=== PATIENT | female | born 1935 | race Caucasian/White ===

== ENCOUNTER 2016-10-23 13:32 | Outpatient (CLI) | payer MEDICARE, OTHER ==
[~2016-10-23] VITALS: Ht 160 cm; Wt 54.9 kg
[2016-10-23 13:44] VITALS: BP 158/88
[2016-10-23] MEDS ORDERED: ESTR1TAB24 PO (13:47)
[2016-10-23] MEDS ORDERED: LOSA50TA36 PO (13:47)
[2016-10-23] MEDS ORDERED: ASPI-586 PO (13:47)
[2016-10-23 14:18] LABS: BASOPHILS % (AUTO) 0 % (0-10); EOSINOPHILS # (AUTO) 0.1 10^3/uL (0.0-0.3); EOSINOPHILS % (AUTO) 2 % (0-10); LYMPHOCYTES # (AUTO) 2.1 X 10^3 (1.0-4.0); LYMPHOCYTES % (AUTO) 44 % (12-44); MEAN CORPUSCULAR HEMOGLOBIN 29 PG (25-34); MEAN CORPUSCULAR HGB CONC 32 G/DL (32-36); MEAN CORPUSCULAR VOLUME 90 FL (80-99); MEAN PLATELET VOLUME 11.1 FL (7.4-10.4); MONOCYTES # (AUTO) 0.6 X 10^3 (0.0-1.0); MONOCYTES % (AUTO) 13 % (0-12); NEUTROPHILS % (AUTO) 41 % (42-75); PLATELET COUNT 203 10^3/uL (130-400); RED BLOOD COUNT 4.03 10^6/uL (4.35-5.85); RED CELL DISTRIBUTION WIDTH 13.4 % (10.0-14.5); WHITE BLOOD COUNT 4.9 10^3/uL (4.3-11.0)
[2016-10-23 14:45] LABS: ANION GAP 9 MMOL/L (5-14); BLOOD UREA NITROGEN 17 MG/DL (7-18); BUN/CREATININE RATIO 21; CARBON DIOXIDE 23 MMOL/L (21-32); CHLORIDE 107 MMOL/L (98-107); GFR ESTIMATED > 60; GLUCOSE 156 MG/DL (70-105); POTASSIUM 4.1 MMOL/L (3.6-5.0); SODIUM 139 MMOL/L (135-145)
== END 2016-10-23 14:05 | disposition home or self-care (01) ==
LOC: PREOP 13:32
PROVIDERS: ATTEND Otolaryngology Otolaryngology/Facial Plastic Surgery
DX: Z01.810 Encounter for preprocedural cardiovascular examination (principal); Z01.812 Encounter for preprocedural laboratory examination; Z11.2 Encounter for screening for other bacterial diseases; C44.311 Basal cell carcinoma of skin of nose
CPT/HCPCS: 36415; 80048; 85025; 87081; 93005

== ENCOUNTER 2016-10-27 07:20 | Day surgery (SDC) | payer MEDICARE, OTHER ==
[~2016-10-27] VITALS: Ht 160 cm; Wt 54.9 kg
[~2016-10-27 07:20] MED LIST: ASPI-586 PO; ESTR1TAB24 PO; LOSA50TA36 PO
[2016-10-27 07:43] VITALS: BP 145/86
[2016-10-27] MEDS ORDERED: LACTATED RINGERS 1,000 ML IV PRN (08:23)
[2016-10-27] MEDS ORDERED: MUPIROCIN 2% OINT 22 GM (BACTROBAN) TUBE ONE (08:33)
[2016-10-27] MEDS ORDERED: LIDOCAINE/EPI 1%-1:200,000 (XYLOCAINE) 30 ML VIAL ONE (08:33)
[2016-10-27] MEDS ORDERED: fentaNYL INJECTION 100 MCG/2 ML AMP ONE (08:54)
[2016-10-27] MEDS ORDERED: proPOfol 200 MG/20 ML (DIPRIVAN) VIAL IV ONE (08:55)
[2016-10-27] MEDS ORDERED: DEXAMETHASONE PF 10 MG/ML (DECADRON) VIAL ONE (08:55)
[2016-10-27] MEDS ORDERED: ONDANSETRON 4 MG/2 ML (SDV) Z0FRAN ONE (08:55)
[2016-10-27] MEDS ORDERED: LACTATED RINGERS 1,000 ML IV ONE (08:55)
[2016-10-27] MEDS ORDERED: LIDOCAINE PF 2% 5 ML (XYLOCAINE) VIAL ONE (08:55)
[2016-10-27] MEDS ORDERED: SEVOFLURANE (ULTANE) 15 ML INHAL SOLN ONE ×5 (08:55→10:10)
--- NOTE | 2016-10-27 09:05 | Progress Note-Pre Operative ---
Pre-Operative Progress Note H&P Reviewed The H&P was reviewed, patient examined and no changes noted. 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
--- NOTE | 2016-10-27 10:18 | Progress Note-Post Operative ---
Post-Operative Progess Note Surgeon (s)/Block Tester (s) Surgeon FRED GLASS MD Block Tester n/a Pre-Operative Diagnosis skin cancer tip of nose Post-Operative Diagnosis same Post-Op Procedure Note Date of Procedure: Oct 27, 2016 Name of Procedure Performed: Excision of BAsal Cell of Nasal Tip Description & Findings Description and Findings: n/a Anesthesia Type lma Estimated Blood Loss minimal Packing none. Specimen(s) collected/removed nasal tip lesion final margins clear FRED GLASS MD Oct 27, 2016 10:18 am
[2016-10-27] MEDS ORDERED: HYDROcodone/APAP 5 MG/325 MG (LORTAB) TAB PO PRN (10:30)
[2016-10-27] MEDS ORDERED: ACETAMINOPHEN 325 MG TABLET/CAPLET (TYLENOL) PO PRN (10:30)
[2016-10-27 11:15] VITALS: BP 155/84
[2016-10-27] MEDS ORDERED: HYDR-3812 PO (11:39)
[2016-10-27 11:45] VITALS: BP 150/88
[2016-10-27 12:10] VITALS: BP 150/88
== END 2016-10-27 13:20 | disposition home or self-care (01) ==
LOC: SDC 07:20
PROVIDERS: ATTEND Otolaryngology Otolaryngology/Facial Plastic Surgery
DX: C44.311 Basal cell carcinoma of skin of nose (principal); I10 Essential (primary) hypertension; Z79.899 Other long term (current) drug therapy
CPT/HCPCS: 88305; 88331

== ENCOUNTER → 2017-03-23 | Outpatient (CLI) | payer MEDICARE, OTHER ==
[~2017-03-23] MED LIST changes: +HYDR-3812 PO
--- NOTE | 2017-03-26 09:30 | Diagnostic Imaging Report ---
Bilateral screening mammogram 2D views with tomosynthesis The current study was also evaluated with a Computer Aided Detection (CAD) system. Indication: Screening. No current complaints stated on the questionnaire. COMPARISON: 03/21/2016. Findings: The breasts are composed of scattered fibroglandular densities. There is no mass, stricture distortion or suspicious for some opacification. Allowing for technique and positional differences, no suspicious change is seen. IMPRESSION: No significant change. ACR BI-RADS Category 2: Benign findings. Result letter will be mailed to the patient. Note: At least 10% of breast cancer is not imaged by mammography. Dictated by: Dictated on workstation # [id number]
== END ==
LOC: RAD 11:55
PROVIDERS: ATTEND Obstetrics & Gynecology
DX: Z12.31 Encounter for screening mammogram for malignant neoplasm of breast (principal)
CPT/HCPCS: 77067

== ENCOUNTER 2017-07-18 07:49 | Emergency (ER) | payer MEDICARE, OTHER ==
[~2017-07-18] VITALS: Ht 160 cm; Wt 55.8 kg
[~2017-07-18 07:49] MED LIST changes: +ACHD5005 PO; -HYDR-3812 PO
[2017-07-18] MEDS ORDERED: SIMV20TA3 PO (08:25)
[2017-07-18 08:26] LABS: BASOPHILS % (AUTO) 0 % (0-10); EOSINOPHILS % (AUTO) 0 % (0-10); HEMATOCRIT 35 % (35-52); HEMOGLOBIN 11.5 G/DL (11.5-16.0); LYMPHOCYTES % (AUTO) 14 % (12-44); MEAN CORPUSCULAR HEMOGLOBIN 29 PG (25-34); MEAN CORPUSCULAR HGB CONC 33 G/DL (32-36); MEAN CORPUSCULAR VOLUME 89 FL (80-99); MEAN PLATELET VOLUME 11.2 FL (7.4-10.4); MONOCYTES # (AUTO) 1.2 X 10^3 (0.0-1.0); MONOCYTES % (AUTO) 16 % (0-12); NEUTROPHILS # (AUTO) 4.9 X 10^3 (1.8-7.8); NEUTROPHILS % (AUTO) 69 % (42-75); PLATELET COUNT 205 10^3/uL (130-400); RED BLOOD COUNT 3.92 10^6/uL (4.35-5.85); RED CELL DISTRIBUTION WIDTH 13.7 % (10.0-14.5); WHITE BLOOD COUNT 7.1 10^3/uL (4.3-11.0)
--- NOTE | 2017-07-18 08:29 | ED Fall/Injury ---
General Chief Complaint: Trauma-Non Activation Stated Complaint: FALL X 1 DAY--LEFT SIDE PAIN Nursing Triage Note: FALL AT HOME YESTERDAY PT STATES HIT HEAD NO LOC. HAS L SIDE PAIN AND BRUISING, RATES PAIN 10/10. C-COLLAR PLACE ON PT IN TRIAGE STATES HAS NECK PAIN Source: patient Exam Limitations: no limitations History of Present Illness Date Seen by Provider: Jul 18, 2017 Time Seen by Provider: 08:04 Initial Comments This 82-year-old woman ambulates into the emergency room with complaints of pain and bruising related to a fall yesterday. She was walking down the basement stairs and missed the last step. She was carrying a high chair at the time. She fell striking her left side and her head. She denies loss of consciousness. She had some nausea in the night but otherwise denies any signs or symptoms of concussion. She complains of neck pain, pain in the left flank and mid back, left shoulder pain, and left lower extremity pain. She has extensive bruising and shallow abrasions of the left lower extremity. She has nonpainful bruising, skin tears and abrasions to the right wrist and hand. She has pain in the left mid back (chest wall) with inspiration. She takes a baby aspirin daily. She denies any other acute medical problems. She is alert and oriented. C-collar was applied during assessment. Location Injury Occurred: HOME Allergies and Home Medications Allergies Coded Allergies: Sulfa (Sulfonamide Antibiotics) (Verified Allergy, Unknown, 10/27/16) morphine (Verified Allergy, Unknown, 10/27/16) Home Medications Aspirin 81 Mg Tablet.dr, 81 MG PO DAILY, (Reported) Estradiol 1 Mg Tablet, 1 MG PO DAILY, (Reported) Losartan Potassium 50 Mg Tablet, 50 MG PO DAILY, (Reported) Patient Home Medication List Home Medication List Reviewed: Yes Review of Systems Constitutional: no symptoms reported Eyes: No Symptoms Reported Ears, Nose, Mouth, Throat: no symptoms reported Respiratory: no symptoms reported Cardiovascular: no symptoms reported Gastrointestinal: see HPI Genitourinary: no symptoms reported : No Musculoskeletal: see HPI Skin: see HPI Psychiatric/Neurological: See HPI Past Rmxjqgy-Pyjqod-Oojfdi Hx Patient Social History Alcohol Use: Denies Use Recreational Drug Use: No Smoking Status: Never a Smoker Recent Foreign Travel: No Contact w/Someone Who Travel: No Recent Infectious Disease Expo: No Recent Hopitalizations: No Physical Abuse: No Sexual Abuse: No Immunizations Up To Date Date of Pneumonia Vaccine: Dec 31, 2012 Seasonal Allergies Seasonal Allergies: Yes (occasional) Past Medical History Surgeries: Yes Appendectomy, Hysterectomy Respiratory: No Cardiac: Yes High Cholesterol, Hypertension Neurological: No Reproductive Disorders: No WEIGHER PACKING History: Hysterectomy Sexually Transmitted Disease: No HIV/AIDS: No Gastrointestinal: No Musculoskeletal: Yes Arthritis Endocrine: No HEENT: No Cancer: Yes Skin Psychosocial: No Nursing Suicide Risk Score: 0 Integumentary: No Blood Disorders: No Adverse Reaction/Blood Tranf: No Physical Exam Vital Signs Vital Signs - First Documented 07/18/17 08:00 Temp 98.2 Pulse 51 Resp 18 B/P (MAP) 140/50 (80) Pulse Ox 99 Capillary Refill : Less Than 3 Seconds General Appearance: WD/WN, no apparent distress HEENT: PERRL/EOMI, normal ENT inspection, pharynx normal Neck: tender midline, other (c-collar in place) Cardiovascular: regular rate, rhythm, no edema, no murmur Respiratory: lungs clear, normal breath sounds, no respiratory distress, no accessory muscle use Gastrointestinal: normal bowel sounds, non tender, soft, no organomegaly Extremities: other (extensive bruising and abrasions on the left thigh and left lower extremity. Tenderness over the left shoulder. Skin tears and bruising on the right hand and right wrist without tenderness. Abrasions on the right wrist.) Neurologic/Psychiatric: type proof reproducer II-XII nml as tested, no motor/sensory deficits, alert, normal mood/affect, oriented x 3 Skin: warm/dry, ecchymosis [place] Coma Score Best Eye Response: (4) Open Spontaneously Best Verbal Response: (5) Oriented Best Motor Response: (6) Obeys Commands [place] Total: 15 Progress/Results/Core Measures Lab Results Laboratory Tests Test 07/18/17 08:20 07/18/17 09:49 Range/Units White Blood Count 7.1 4.3-11.0 10^3/uL Red Blood Count 3.92 L 4.35-5.85 10^6/uL Hemoglobin 11.5 11.5-16.0 G/DL Hematocrit 35 35-52 % Mean Corpuscular Volume 89 80-99 FL Mean Corpuscular Hemoglobin 29 25-34 PG Mean Corpuscular Hemoglobin Concent 33 32-36 G/DL Red Cell Distribution Width 13.7 10.0-14.5 % Platelet Count 205 130-400 10^3/uL Mean Platelet Volume 11.2 H 7.4-10.4 FL Neutrophils (%) (Auto) 69 42-75 % Lymphocytes (%) (Auto) 14 12-44 % Monocytes (%) (Auto) 16 H 0-12 % Eosinophils (%) (Auto) 0 0-10 % Basophils (%) (Auto) 0 0-10 % Neutrophils # (Auto) 4.9 1.8-7.8 X 10^3 Lymphocytes # (Auto) 1.0 1.0-4.0 X 10^3 Monocytes # (Auto) 1.2 H 0.0-1.0 X 10^3 Eosinophils # (Auto) 0.0 0.0-0.3 10^3/uL Basophils # (Auto) 0.0 0.0-0.1 10^3/uL Prothrombin Time 14.5 12.2-14.7 SEC INR Comment 1.1 0.8-1.4 Activated Partial Thromboplast Time 28 24-35 SEC Sodium Level 140 135-145 MMOL/L Potassium Level 4.1 3.6-5.0 MMOL/L Chloride Level 107 98-107 MMOL/L Carbon Dioxide Level 23 21-32 MMOL/L Anion Gap 10 5-14 MMOL/L Blood Urea Nitrogen 24 H 7-18 MG/DL Creatinine 1.09 0.60-1.30 MG/DL Estimat Glomerular Filtration Rate 48 BUN/Creatinine Ratio 22 Glucose Level 133 H 70-105 MG/DL Calcium Level 9.9 8.5-10.1 MG/DL Total Bilirubin 0.9 0.1-1.0 MG/DL Aspartate Amino Transf (AST/SGOT) 20 5-34 U/L Alanine Aminotransferase (ALT/SGPT) 17 0-55 U/L Alkaline Phosphatase 70 40-136 U/L Total Creatine Kinase 175 H 29-168 U/L Total Protein 7.2 6.4-8.2 GM/DL Albumin 4.5 3.2-4.5 GM/DL Urine Color YELLOW Urine Clarity CLEAR Urine pH 5 5-9 Urine Specific [place] 1.025 H 1.016-1.022 Urine Protein 2+ H NEGATIVE Urine Glucose (UA) NEGATIVE NEGATIVE Urine Ketones 1+ H NEGATIVE Urine Nitrite NEGATIVE NEGATIVE Urine Bilirubin NEGATIVE NEGATIVE Urine Urobilinogen NORMAL NORMAL MG/DL Urine Leukocyte Esterase 1+ H NEGATIVE Urine RBC (Auto) NEGATIVE NEGATIVE Urine RBC NONE /HPF Urine WBC 2-5 /HPF Urine Squamous Epithelial Cells 10-25 H /HPF Urine Crystals NONE /LPF Urine Bacteria NEGATIVE /HPF Urine Casts NONE /LPF Urine Mucus MODERATE H /LPF Urine Culture Indicated NO My Orders Orders - GABRIELLA MARTINEZ MD Cbc With Automated Diff (07/18/17 08:10) Comprehensive Metabolic Panel (07/18/17 08:10) Protime With Inr (07/18/17 08:10) Partial Thromboplastin Time (07/18/17 08:10) Ua Culture If Indicated (07/18/17 08:10) Chest 1 View, Ap/Pa Only (07/18/17 08:10) Shoulder, Left, 3 Views (07/18/17 08:10) Femur, Left, 2 Views (07/18/17 08:10) Tibia/Fibula, Left, 2 Views (07/18/17 08:10) Ct Head/Cervical Spine Wo (07/18/17 08:10) Saline Lock/Iv-Start (07/18/17 08:10) Pelvis (07/18/17 08:10) Ct Chest/Abdomen/Pelvis Wo (07/18/17 09:05) Creatine Kinase (07/18/17 09:21) Saline Lock/Iv-Start (07/18/17 10:52) Ns Iv 500 Ml (Sodium Chloride 0.9%) (07/18/17 10:52) Dipht,Pertuss(Acell),Tet Adult (Boostrix (07/18/17 11:00) Medications Given in ED Vital Signs/I&O 07/18/17 07/18/17 08:00 11:45 Temp 98.2 Pulse 51 45 Resp 18 18 B/P (MAP) 140/50 (80) 148/59 Pulse Ox 99 99 Blood Pressure Mean: 80 Progress Note : Progress Note Patient was thoroughly examined for trauma related injuries. Extensive imaging was performed and found no serious injuries. Patient was offered treatment for her pain but declined. Tetanus booster was administered. Creatinine kinase was slightly elevated and therefore IV fluids as a 500 mL normal saline bolus were administered. C-collar was cleared after review of CT of the cervical spine. Diagonstic Imaging: CT Plain Films/CT/US/NM/MRI: c-spine, head Comments CT head and C-spine viewed by me. Report reviewed. See report below: NAME: NILDA SCHWARTZ REC#: [id number] PT STATUS: REG ER : 1935 PHYSICIAN: GABRIELLA MARTINEZ MD ADMIT DATE: 07/18/17/ER Draft Date of Exam:07/18/17 CT HEAD/CERVICAL SPINE WO PROCEDURE: CT head and CT cervical spine without contrast. TECHNIQUE: Multiple contiguous axial images were obtained through the brain and cervical spine without the use of intravenous contrast. Sagittal and coronal reformations through the cervical spine were then performed. INDICATION: Fall. Comparison is made with prior CT from 05/03/2013. CT brain: The ventricles and sulci are appropriate for the patient's age. Moderate periventricular hypodensity is noted consistent with senescent change. No sulcal effacement, midline shift or hemorrhage is detected. The cisterns are patent. The visualized paranasal sinuses are clear. IMPRESSION: No acute intracranial process is detected. CT cervical spine: Curvature and alignment of the cervical spine is normal. There is multilevel degenerative disc disease with a variable disc space narrowing and marginal spurring, greatest at C5-6 level. Prevertebral tissues are normal. Odontoid is intact. No fractures are seen. IMPRESSION: Cervical spondylosis. No acute bony abnormality is detected. Dictated on workstation # [id number] Dict: 07/18/17 0842 Trans: 07/18/17 0849 [facility] [id number] Interpreted by: LEILA URBINA MD Diagonstic Imaging: Xray Plain Films/CT/US/NM/MRI: chest Comments Chest x-ray viewed by me and report reviewed. See report below: NAME: NILDA SCHWARTZ REC#: [id number] PT STATUS: REG ER : 1935 PHYSICIAN: GABRIELLA MARTINEZ MD ADMIT DATE: 07/18/17/ER Signed Date of Exam:07/18/17 CHEST 1 VIEW, AP/PA ONLY INDICATION: Fall with chest pain. TECHNIQUE: A frontal chest was obtained at 0921 hours. FINDINGS: The heart is borderline in size. The mediastinal silhouette is unremarkable. The lungs are clear. There is no pneumothorax or pleural fluid. There is no overt bony abnormality in the chest. IMPRESSION: Borderline heart size with no acute process in the chest. Dictated by: Dictated on workstation # [id number] Dict: 07/18/1736 Trans: 07/18/1752 JEAN MARIE [id number] Interpreted by: ANAHI REEDER MD Electronically signed by: ANAHI REEDER MD 07/18/1752 Diagonstic Imaging: Xray Plain Films/CT/US/NM/MRI: other (left shoulder) Comments Left shoulder x-ray viewed by me and report reviewed. See report below: [id number] PT STATUS: REG ER : 1935 PHYSICIAN: GABRIELLA MARTINEZ MD ADMIT DATE: 07/18/17/ER Signed Date of Exam:07/18/17 SHOULDER, LEFT, 3 VIEWS INDICATION: Left shoulder pain. TECHNIQUE: AP, oblique, and lateral views of the left shoulder were obtained. FINDINGS: No fracture or dislocation is seen. There is no acute bony abnormality. The glenohumeral joint appears unremarkable. The AC joint shows mild degenerative change. IMPRESSION: Mild degenerative change of the AC joint. No acute fracture or dislocation. Dictated by: Dictated on workstation # [id number] Dict: 07/18/1733 Trans: 07/18/1752 JEAN MARIE [id number] Interpreted by: ANAHI REEDER MD Electronically signed by: ANAHI REEDER MD 07/18/1752 Diagonstic Imaging: Xray Plain Films/CT/US/NM/MRI: leg Comments Left femur x-ray viewed by me and report reviewed. See report below: [facility] [id number] PT STATUS: REG ER : 1935 PHYSICIAN: GABRIELLA MARTINEZ MD ADMIT DATE: 07/18/17/ER Signed Date of Exam:07/18/17 FEMUR, LEFT, 2 VIEWS INDICATION: Fall with left femur pain. TECHNIQUE: AP and lateral views of the left femur were obtained. FINDINGS: No fracture or acute bony abnormality is seen. IMPRESSION: Negative left femur. Dictated by: Dictated on workstation # [id number] Dict: 07/18/1734 Trans: 07/18/17951 [id number] Interpreted by: ANAHI REEDER MD Electronically signed by: ANAHI REEDER MD 07/18/17951 Diagonstic Imaging: Xray Plain Films/CT/US/NM/MRI: leg Comments Left tib-fib x-ray viewed by me and report reviewed. See report below: NAME: [facility] REC#: [id number] PT STATUS: [facility] : 1935 PHYSICIAN: GABREILLA MARTINEZ MD ADMIT DATE: 07/18/17/ER Signed Date of Exam:07/18/17 TIBIA/FIBULA, LEFT, 2 VIEWS INDICATION: Fall with left leg pain AP and lateral views of the left tibia and fibula are performed. No fracture or acute bony abnormality is seen. IMPRESSION: Negative left tibia and fibula. Dictated by: Dictated on workstation # [id number] Dict: 07/18/17932 Trans: 07/18/17951 [facility] [phone] Interpreted by: ANAHI REEDER MD Electronically signed by: ANAHI REEDER MD 07/18/1752 Diagonstic Imaging: CT Plain Films/CT/US/NM/MRI: chest, abdomen, pelvis Comments CT chest, abdomen and pelvis viewed by me and report reviewed. See report below : NAME: [facility] REC#: [id number] PT STATUS: [facility] ER : 1935 PHYSICIAN: GABRIELLA MARTINEZ MD ADMIT DATE: 07/18/17/ER Signed Date of Exam: 07/18/17 CT CHEST/ABDOMEN/PELVIS WO PROCEDURE: CT chest, abdomen, and pelvis without contrast. TECHNIQUE: Multiple contiguous axial images were obtained through the chest, abdomen, and pelvis without the use of intravenous contrast. INDICATION: Chest and back pain after fall, trauma. COMPARISON: None available. CT CHEST FINDINGS: Thyroid is normal. No supraclavicular or axillary lymphadenopathy. No intrathoracic lymphadenopathy. No evidence of mediastinal hemorrhage. Thoracic aorta is normal in caliber. No pericardial effusion. Heart is on the upper limits of normal in size. No pleural effusion or pneumothorax. No pulmonary mass or consolidation. No evidence of pulmonary laceration or contusion. No suspicious pulmonary nodules. No acute rib fractures. The clavicles are intact. No compression or burst fracture within the thoracic spine. Sternum is intact. IMPRESSION: 1. No evidence of acute traumatic injury in the chest by noncontrast imaging. 2. No rib fracture. CT ABDOMEN AND PELVIS FINDINGS: No free intraperitoneal air or fluid. Assessment of solid abdominal visceral injury is limited without IV contrast. Allowing for this, there are no features to suggest laceration or subcapsular hematoma in the liver or spleen. Unenhanced pancreas and adrenals are normal. Kidneys are normal in size without obstruction or calculi. No evidence of renal parenchymal injury. Urinary bladder is decompressed and limited in evaluation. Uterus is not visualized and may be surgically absent. No dilated loops of bowel to indicate bowel obstruction. No acute fracture in the lumbar spine. No fracture in the osseous pelvis. Proximal femurs are intact. IMPRESSION: 1. No evidence of acute traumatic injury in the abdomen or pelvis by noncontrast imaging. 2. No acute fracture in the pelvis or lumbar spine. Dictated by: Dictated on workstation # [id number] Dict: 07/18/17 1034 Trans: 07/18/17 1359 Interpreted by: ESTEPHANIA BRIZUELA MD Electronically signed by: ESTEPHANIA BRIZUELA MD 07/18/17 1350 Diagonstic Imaging: Xray Plain Films/CT/US/NM/MRI: pelvis Comments Pelvis x-ray viewed by me and report reviewed. See report below: NAME: NILDA SCHWARTZ [facility] REC#: [id number] PT STATUS: REG ER : 1935 PHYSICIAN: GABRIELLA MARTINEZ MD ADMIT DATE: 07/18/17/ER Signed Date of Exam: 07/18/17 PELVIS INDICATION: Fall with pelvic pain. TECHNIQUE: An AP pelvis was obtained at 0926 hours. FINDINGS: No fracture or acute bony abnormality is seen. IMPRESSION: Negative pelvis. Dictated by: Dictated on workstation # [id number] Dict: 07/18/17934 Trans: 07/18/17951 Interpreted by: ANAHI REEDER MD Electronically signed by: ANAHI REEDER MD 07/18/17951 Departure Impression Primary Impression: Fall down stairs Qualified Codes: W10.8XXA - Fall (on) (from) other stairs and steps, initial encounter Additional Impressions: Multiple contusions Skin tear Disposition: HOME, SELF-CARE Condition: Improved Departure-Patient Inst. Decision time for Depature: 10:50 Referrals: RAFA SANDHU MD (PCP/Family) Primary Care Physician Patient Instructions: Contusion (DC) Add. Discharge Instructions: Drink plenty of water and eat a well-balanced diet. Follow-up with your doctor later this week. Return to care if you're having worsening problems. For pain take Tylenol (acetaminophen) up to 650 mg every 6 hours as needed. You may add ibuprofen up to one 200 mg tablet three times daily. All discharge instructions reviewed with patient and/or family. Voiced understanding. Copy Copies To 1: RAFA SANDHU MD, JOSHUA T MD Jul 18, 2017 08:29
[2017-07-18 08:40] LABS: INR 1.1 (0.8-1.4); PROTHROMBIN TIME PATIENT 14.5 SEC (12.2-14.7)
[2017-07-18 08:45] LABS: ALBUMIN 4.5 GM/DL (3.2-4.5); BILIRUBIN,TOTAL 0.9 MG/DL (0.1-1.0); CALCIUM 9.9 MG/DL (8.5-10.1); CREATININE SERUM 1.09 MG/DL (0.60-1.30); POTASSIUM 4.1 MMOL/L (3.6-5.0); TOTAL PROTEIN 7.2 GM/DL (6.4-8.2)
--- NOTE | 2017-07-18 08:49 | Diagnostic Imaging Report ---
PROCEDURE: CT head and CT cervical spine without contrast. TECHNIQUE: Multiple contiguous axial images were obtained through the brain and cervical spine without the use of intravenous contrast. Sagittal and coronal reformations through the cervical spine were then performed. INDICATION: Fall. Comparison is made with prior CT from 05/03/2013. CT brain: The ventricles and sulci are appropriate for the patient's age. Moderate periventricular hypodensity is noted consistent with senescent change. No sulcal effacement, midline shift or hemorrhage is detected. The cisterns are patent. The visualized paranasal sinuses are clear. IMPRESSION: No acute intracranial process is detected. CT cervical spine: Curvature and alignment of the cervical spine is normal. There is multilevel degenerative disc disease with a variable disc space narrowing and marginal spurring, greatest at C5-6 level. Prevertebral tissues are normal. Odontoid is intact. No fractures are seen. IMPRESSION: Cervical spondylosis. No acute bony abnormality is detected. Dictated by: Dictated on workstation # [id number]
--- NOTE | 2017-07-18 09:36 | Diagnostic Imaging Report ---
INDICATION: Left shoulder pain. TECHNIQUE: AP, oblique, and lateral views of the left shoulder were obtained. FINDINGS: No fracture or dislocation is seen. There is no acute bony abnormality. The glenohumeral joint appears unremarkable. The AC joint shows mild degenerative change. IMPRESSION: Mild degenerative change of the AC joint. No acute fracture or dislocation. Dictated by: Dictated on workstation # [id number]
--- NOTE | 2017-07-18 09:36 | Diagnostic Imaging Report ---
INDICATION: Fall with left femur pain. TECHNIQUE: AP and lateral views of the left femur were obtained. FINDINGS: No fracture or acute bony abnormality is seen. IMPRESSION: Negative left femur. Dictated by: Dictated on workstation # [id number]
--- NOTE | 2017-07-18 09:36 | Diagnostic Imaging Report ---
INDICATION: Fall with left leg pain AP and lateral views of the left tibia and fibula are performed. No fracture or acute bony abnormality is seen. IMPRESSION: Negative left tibia and fibula. Dictated by: Dictated on workstation # [id number]
--- NOTE | 2017-07-18 09:37 | Diagnostic Imaging Report ---
INDICATION: Fall with pelvic pain. TECHNIQUE: An AP pelvis was obtained at 0926 hours. FINDINGS: No fracture or acute bony abnormality is seen. IMPRESSION: Negative pelvis. Dictated by: Dictated on workstation # [id number]
--- NOTE | 2017-07-18 09:38 | Diagnostic Imaging Report ---
INDICATION: Fall with chest pain. TECHNIQUE: A frontal chest was obtained at 0921 hours. FINDINGS: The heart is borderline in size. The mediastinal silhouette is unremarkable. The lungs are clear. There is no pneumothorax or pleural fluid. There is no overt bony abnormality in the chest. IMPRESSION: Borderline heart size with no acute process in the chest. Dictated by: Dictated on workstation # [id number]
[2017-07-18 09:54] LABS: BILIRUBIN,URINE NEGATIVE (NEGATIVE); CLARITY,URINE CLEAR; COLOR,URINE YELLOW; GLUCOSE, URINE (UA) NEGATIVE (NEGATIVE); KETONES,URINE 1+ (NEGATIVE); LEUKOCYTE ESTERASE ,URINE 1+ (NEGATIVE); NITRITE,URINE NEGATIVE (NEGATIVE); PH,URINE 5 (5-9); PROTEIN,URINE 2+ (NEGATIVE); UROBILINOGEN,URINE NORMAL (NORMAL)
[2017-07-18 10:01] LABS: BACTERIA,URINE NEGATIVE /HPF
--- NOTE | 2017-07-18 10:44 | Diagnostic Imaging Report ---
PROCEDURE: CT chest, abdomen, and pelvis without contrast. TECHNIQUE: Multiple contiguous axial images were obtained through the chest, abdomen, and pelvis without the use of intravenous contrast. INDICATION: Chest and back pain after fall, trauma. COMPARISON: None available. CT CHEST FINDINGS: Thyroid is normal. No supraclavicular or axillary lymphadenopathy. No intrathoracic lymphadenopathy. No evidence of mediastinal hemorrhage. Thoracic aorta is normal in caliber. No pericardial effusion. Heart is on the upper limits of normal in size. No pleural effusion or pneumothorax. No pulmonary mass or consolidation. No evidence of pulmonary laceration or contusion. No suspicious pulmonary nodules. No acute rib fractures. The clavicles are intact. No compression or burst fracture within the thoracic spine. Sternum is intact. IMPRESSION: 1. No evidence of acute traumatic injury in the chest by noncontrast imaging. 2. No rib fracture. CT ABDOMEN AND PELVIS FINDINGS: No free intraperitoneal air or fluid. Assessment of solid abdominal visceral injury is limited without IV contrast. Allowing for this, there are no features to suggest laceration or subcapsular hematoma in the liver or spleen. Unenhanced pancreas and adrenals are normal. Kidneys are normal in size without obstruction or calculi. No evidence of renal parenchymal injury. Urinary bladder is decompressed and limited in evaluation. Uterus is not visualized and may be surgically absent. No dilated loops of bowel to indicate bowel obstruction. No acute fracture in the lumbar spine. No fracture in the osseous pelvis. Proximal femurs are intact. IMPRESSION: 1. No evidence of acute traumatic injury in the abdomen or pelvis by noncontrast imaging. 2. No acute fracture in the pelvis or lumbar spine. Dictated by: Dictated on workstation # [id number]
[2017-07-18] MEDS ORDERED: NS IV 500 ML 500 ML IV ONE (10:52)
[2017-07-18] MEDS ORDERED: TETANUS,DIPTH,PERTUSS P/F (BOOSTRIX) 0.5 ML VIAL IM ONE (11:00)
[2017-07-18 11:45] VITALS: BP 148/59
[2017-08-09] MEDS ORDERED: HYDR-3812 PO (11:43)
== END 2017-07-18 11:48 | disposition home or self-care (01) ==
LOC: EDUNIT# 07:49 → ER 07:51
DX: S61.511A Laceration without foreign body of right wrist, initial encounter (principal); S00.83XA Contusion of other part of head, initial encounter; S70.312A Abrasion, left thigh, initial encounter; E78.00 Pure hypercholesterolemia, unspecified; I10 Essential (primary) hypertension; R40.2142 Coma scale, eyes open, spontaneous, at arrival to emergency department; R40.2252 Coma scale, best verbal response, oriented, at arrival to emergency department; R40.2362 Coma scale, best motor response, obeys commands, at arrival to emergency department; Z23 Encounter for immunization; Z85.828 Personal history of other malignant neoplasm of skin; Z88.2 Allergy status to sulfonamides; Z88.5 Allergy status to narcotic agent; Z79.82 Long term (current) use of aspirin; Z90.710 Acquired absence of both cervix and uterus; Z90.49 Acquired absence of other specified parts of digestive tract; W10.9XXA Fall (on) (from) unspecified stairs and steps, initial encounter; W22.09XA Striking against other stationary object, initial encounter; Y92.009 Unspecified place in unspecified non-institutional (private) residence as the place of occurrence of the external cause
CPT/HCPCS: 36415; 70450; 71045; 71250; 72125; 72170; 73030; 73552; 73590; 74176; 80053; 81000; 82550; 85025; 85610; 85730; 90471; 90715

== ENCOUNTER → 2017-07-27 | Outpatient (CLI) | payer MEDICARE, OTHER ==
[~2017-07-27] MED LIST changes: +HYDR-3812 PO; +SIMV20TA3 PO; +SIMV40TA4 PO
--- NOTE | 2017-07-27 15:41 | Diagnostic Imaging Report ---
INDICATION: Trauma, fell down stairs with left thigh hematoma. FINDINGS: Sonographic interrogation of area of hematoma was performed. There is a large fluid collection measuring 15.0 x 1.6 x 7.3 cm, most suggestive of a hematoma. There are some internal septations. No internal vascularity is seen. IMPRESSION: Large left thigh hematoma. Dictated by: Dictated on workstation # [id number]
== END ==
LOC: RAD 14:16
PROVIDERS: ATTEND Nurse Practitioner Family
DX: S70.12XA Contusion of left thigh, initial encounter (principal); W10.9XXA Fall (on) (from) unspecified stairs and steps, initial encounter
CPT/HCPCS: 76881

== ENCOUNTER 2017-08-02 08:42 | Outpatient (CLI) | payer MEDICARE, OTHER ==
[~2017-08-02] VITALS: Ht 160 cm; Wt 54.7 kg
[~2017-08-02 08:42] MED LIST changes: -HYDR-3812 PO; -SIMV40TA4 PO
[2017-08-02] MEDS ORDERED: SIMV40TA4 PO (08:55)
[2017-08-02 08:58] VITALS: BP 144/68
[2017-08-02 09:19] LABS: BASOPHILS % (AUTO) 0 % (0-10); EOSINOPHILS # (AUTO) 0.1 10^3/uL (0.0-0.3); EOSINOPHILS % (AUTO) 1 % (0-10); HEMATOCRIT 31 % (35-52); LYMPHOCYTES # (AUTO) 1.4 X 10^3 (1.0-4.0); LYMPHOCYTES % (AUTO) 25 % (12-44); MEAN CORPUSCULAR HEMOGLOBIN 29 PG (25-34); MEAN CORPUSCULAR HGB CONC 32 G/DL (32-36); MEAN CORPUSCULAR VOLUME 91 FL (80-99); MEAN PLATELET VOLUME 10.2 FL (7.4-10.4); MONOCYTES # (AUTO) 0.9 X 10^3 (0.0-1.0); MONOCYTES % (AUTO) 18 % (0-12); NEUTROPHILS % (AUTO) 56 % (42-75); PLATELET COUNT 281 10^3/uL (130-400); RED BLOOD COUNT 3.47 10^6/uL (4.35-5.85); RED CELL DISTRIBUTION WIDTH 13.9 % (10.0-14.5); WHITE BLOOD COUNT 5.4 10^3/uL (4.3-11.0)
[2017-08-02 09:36] LABS: BUN/CREATININE RATIO 19; CALCIUM 9.3 MG/DL (8.5-10.1); CARBON DIOXIDE 23 MMOL/L (21-32); CHLORIDE 107 MMOL/L (98-107); GFR ESTIMATED > 60; GLUCOSE 107 MG/DL (70-105); POTASSIUM 4.4 MMOL/L (3.6-5.0); SODIUM 140 MMOL/L (135-145)
[2017-08-09] MEDS ORDERED: HYDR-3812 PO (11:43)
== END 2017-08-02 10:33 ==
LOC: PREOP 08:42
PROVIDERS: ATTEND Otolaryngology Otolaryngology/Facial Plastic Surgery
DX: Z01.810 Encounter for preprocedural cardiovascular examination (principal); Z01.812 Encounter for preprocedural laboratory examination; Z11.2 Encounter for screening for other bacterial diseases; C44.321 Squamous cell carcinoma of skin of nose
CPT/HCPCS: 36415; 80048; 85025; 87081; 93005

== ENCOUNTER 2017-08-13 07:18 | Outpatient (RCR) | payer MEDICARE, OTHER ==
[~2017-08-13 07:18] MED LIST changes: +HYDR-3812 PO; +SIMV40TA4 PO
== END 2017-11-11 | disposition home or self-care (01) ==
LOC: CARD 07:18
PROVIDERS: ATTEND Internal Medicine Interventional Cardiology
DX: E78.5 Hyperlipidemia, unspecified (principal); I10 Essential (primary) hypertension; I44.1 Atrioventricular block, second degree
CPT/HCPCS: 93225; 93226

== ENCOUNTER → 2017-08-23 | Outpatient (CLI) | payer MEDICARE, OTHER | LOC: CARD 08:50 | PROVIDERS: ATTEND Internal Medicine Interventional Cardiology | DX: E78.5 Hyperlipidemia, unspecified (principal); I10 Essential (primary) hypertension; I44.1 Atrioventricular block, second degree; I08.3 Combined rheumatic disorders of mitral, aortic and tricuspid valves | CPT/HCPCS: 93306 ==

== ENCOUNTER → 2017-10-11 | Outpatient (CLI) | payer MEDICARE, OTHER ==
--- NOTE | 2017-10-11 14:06 | Diagnostic Imaging Report ---
PROCEDURE: MRI lumbar spine. TECHNIQUE: Multiplanar, multisequence MRI of the lumbar spine was performed without contrast. INDICATION: Fall in July 2017 now with low back pain and bilateral leg pain. COMPARISON: Comparison is made with prior MRI of the lumbar spine from 06/27/2012. FINDINGS: Curvature and alignment of the lumbar spine is within normal limits apart from minimal anterolisthesis of L4 on L5. Vertebral body heights are maintained. There is minimal edema along the right aspect of the L4 vertebral body, not present on prior exam. This could represent a healing superior endplate fracture versus a Schmorl's node. No loss of stature of the vertebral body is seen. There is no retropulsion. All other vertebral bodies are unremarkable. There is some generalized disc desiccation compatible with degenerative disc disease. L1-L2 and L2-L3 levels are unremarkable. L3-L4 does show some broad-based disc bulging and ligamentous thickening, but no central canal stenosis is seen. There is mild neuroforaminal narrowing. L4-L5 does demonstrate hypertrophic facet changes and ligamentous thickening as well as moderate trefoil narrowing of the canal. There is narrowing of bilateral lateral recesses and also significant right neuroforaminal stenosis. This is new since prior exam. L5-S1: No significant central canal or neuroforaminal stenosis is seen. IMPRESSION: 1. Lumbar spondylosis. There is central canal and right neuroforaminal stenosis at the L4-L5 level, as described and new since prior MRI from 2012. 2. Questionable healing superior endplate fracture versus Schmorl's node along the right aspect of the L4 vertebral body. Remainder of the study is unremarkable. Dictated by: Dictated on workstation # [id number]
== END ==
LOC: RAD 08:41
PROVIDERS: ATTEND Family Medicine
DX: M99.73 Connective tissue and disc stenosis of intervertebral foramina of lumbar region (principal); M47.816 Spondylosis without myelopathy or radiculopathy, lumbar region; M51.26 Other intervertebral disc displacement, lumbar region
CPT/HCPCS: 72148

== ENCOUNTER → 2018-04-04 | Outpatient (CLI) | payer MEDICARE, OTHER ==
[~2018-04-04] MED LIST changes: -LOSA50TA36 PO; +LOSA50TA7 PO
--- NOTE | 2018-04-04 18:34 | Diagnostic Imaging Report ---
EXAMINATION: Digital Mammogram bilateral screening with 3D tomosynthesis and computer-aided detection (CAD) system. INDICATION: Screening. COMPARISON: This study was compared to the prior exams of 03/23/2017, 03/21/2016, and 03/17/2015. At this time, there are no current complaints. FINDINGS: There are scattered fibroglandular densities in both breasts which could obscure a lesion. When compared to the prior study, there has been no significant change. There is no primary or secondary sign of malignancy noted. The 3D tomographic views also fail to show any sign of malignancy. IMPRESSION: There is no evidence of malignancy. ACR BI-RADS Category 1: Negative. Result letter will be mailed to the patient. Note: At least 10% of breast cancer is not imaged by mammography. Dictated by: Dictated on workstation # [id number]
== END ==
LOC: RAD 09:58
PROVIDERS: ATTEND Obstetrics & Gynecology
DX: Z12.31 Encounter for screening mammogram for malignant neoplasm of breast (principal)
CPT/HCPCS: 77067

== ENCOUNTER 2018-05-09 08:00 | Outpatient (CLI) | payer MEDICARE, OTHER ==
[~2018-05-09] VITALS: Ht 160 cm; Wt 53.1 kg
[~2018-05-09 08:00] MED LIST changes: +LOSA50TA63 PO; -LOSA50TA7 PO
[2018-05-09] MEDS ORDERED: AMLO5TAB9 PO (08:09)
== END 2018-05-09 12:45 | disposition home or self-care (01) ==
LOC: PREOP 08:00
PROVIDERS: ATTEND Surgery
DX: Z01.818 Encounter for other preprocedural examination (principal)

== ENCOUNTER 2018-05-14 07:04 | Day surgery (SDC) | payer MEDICARE, OTHER ==
[~2018-05-14] VITALS: Ht 160 cm; Wt 53.1 kg
[~2018-05-14 07:04] MED LIST changes: +AMLO5TAB9 PO
[2018-05-14] MEDS ORDERED: LACTATED RINGERS 1,000 ML IV ONE (07:10)
--- OUTSIDE RECORDS SUMMARY | 2018-05-14 07:10 | XMS REPORT | Continuity of Care Document ---
Author Author [facility] Organization [facility] Address Unknown Phone Unavailable Allergies Active Description Code Type Severity Reaction Onset Reported/Identified Relationship to Patient Clinical Status Yes morphine [id number] Drug Allergy Unknown N/A 10/27/2016 Yes Sulfa (Sulfonamide Antibiotics) [id number] Drug Allergy Unknown N/A 2016 Yes morphine [id number] Drug Allergy Moderate CONFUSION 08/02/2017 Yes Sulfa (Sulfonamide Antibiotics) [id number] Drug Allergy Mild HIVES 2017 Medications There is no data. Problems Date Dx Coded Attending Type Code Diagnosis Diagnosed By 05/03/2013 QUINCY PACKER APRN Ot 719.41 JOINT PAIN-SHLDER 05/03/2013 QUINCY PACKER APRN Ot 719.45 JOINT PAIN-PELVIS 05/03/2013 QUINCY PACKER APRN Ot 724.5 BACKACHE NOS 05/03/2013 QUINCY PACKER APRN Ot 784.0 HEADACHE 05/03/2013 QUINCY PACKER APRN Ot 924.9 CONTUSION NOS 05/03/2013 QUINCY PACKER APRN Ot 959.19 OTH INJURY OF OTHER SITES OF TRUNK 05/03/2013 QUINCY PACKER APRN Ot E000.8 OTHER EXTERNAL CAUSE STATUS 05/03/2013 QUINCY PACKER APRN Ot E849.6 ACCIDENT IN PUBLIC BLDG 05/03/2013 QUINCY PACKER APRN Ot E885.9 FALL FROM SLIPPING, TRIPPING, OR STUMBLI 03/12/2014 Ot 715.35 03/12/2014 Ot 724.6 03/12/2014 Ot 733.00 03/12/2014 Ot V76.12 03/12/2014 Ot 715.35 03/12/2014 Ot 724.6 03/12/2014 Ot 733.00 03/12/2014 Ot V76.12 03/12/2014 Ot 729.5 03/12/2014 Ot V76.12 03/12/2014 Ot 733.90 03/12/2014 Ot V76.12 03/12/2014 Ot V76.12 03/12/2014 Ot 724.4 03/12/2014 MICHAEL ROSALES, BRYANT Rodrigo Ot 733.90 03/12/2014 MICHAEL ROSALES, BRYANT Rodrigo Ot V76.12 03/24/2014 MICHAEL ROSALES, BRYANT Wallace Ot V76.12 04/01/2014 MICHAEL ROSALES, BRYANT Rodrigo Ot V76.12 03/17/2015 Ot V76.12 03/17/2015 Ot 733.90 03/17/2015 Ot V76.12 03/17/2015 Ot V76.12 03/17/2015 Ot 724.4 03/17/2015 MICHAEL ROSALES, BRYANT Rodrigo Ot 733.90 03/17/2015 MICHAEL ROSALES, BRYANT Rodrigo Ot V76.12 03/17/2015 MICHAEL ROSALES, BRYANT Rodrigo Ot V76.12 04/06/2015 MICHAEL ROSALES, BRYANT Wallace Ot Z12.31 03/21/2016 Ot 733.90 BONE CARTILAGE DIS NOS 03/21/2016 Ot V76.12 OTH SCREEN MAMMO-MALIGN NEOPLASM OF TAB 03/21/2016 Ot V76.12 OTH SCREEN MAMMO-MALIGN NEOPLASM OF TAB 03/21/2016 Ot 724.4 LUMBOSACRAL NEURITIS NOS 03/21/2016 MICHAEL ROSALES, BRYANT Wallace Ot 733.90 BONE CARTILAGE DIS NOS 03/21/2016 MICHAEL ROSALES, BRYANT Wallace Ot V76.12 OTH SCREEN MAMMO-MALIGN NEOPLASM OF TAB 03/21/2016 MICHAEL ROSALES, BRYANT Wallace Ot V76.12 OTH SCREEN MAMMO-MALIGN NEOPLASM OF TAB 03/21/2016 MICHAEL ROSALES, BRYANT Wallace Ot Z12.31 ENCNTR SCREEN MAMMOGRAM FOR MALIGNANT NE 03/22/2016 BRYANT RODRIGUEZ MD Ot Z12.31 ENCNTR SCREEN MAMMOGRAM FOR MALIGNANT NE 03/23/2016 BRYANT RODRIGUEZ MD Ot Z12.31 ENCNTR SCREEN MAMMOGRAM FOR MALIGNANT NE 04/10/2016 BRYANT RODRIGUEZ MD Ot Z12.31 ENCNTR SCREEN MAMMOGRAM FOR MALIGNANT NE 10/23/2016 Ot V76.12 OTH SCREEN MAMMO-MALIGN NEOPLASM OF TAB 10/23/2016 Ot 724.4 LUMBOSACRAL NEURITIS NOS 10/23/2016 BRYANT RODRIGUEZ MD Ot 733.90 BONE CARTILAGE DIS NOS 10/23/2016 BRYANT RODRIGUEZ MD Ot V76.12 OTH SCREEN MAMMO-MALIGN NEOPLASM OF TAB 10/23/2016 BRYANT RODRIGUEZ MD, Ot V76.12 OTH SCREEN MAMMO-MALIGN NEOPLASM OF TAB 10/23/2016 BRYANT RODRIGUEZ MD, Ot Z12.31 ENCNTR SCREEN MAMMOGRAM FOR MALIGNANT NE 10/23/2016 BRYANT RODRIGUEZ MD, Ot Z12.31 ENCNTR SCREEN MAMMOGRAM FOR MALIGNANT NE 10/23/2016 Ot V76.12 OTH SCREEN MAMMO-MALIGN NEOPLASM OF TAB 10/23/2016 Ot 724.4 LUMBOSACRAL NEURITIS NOS 10/23/2016 BRYANT RODRIGUEZ MD Ot 733.90 BONE CARTILAGE DIS NOS 10/23/2016 BRYANT RODRIGUEZ MD Ot V76.12 OTH SCREEN MAMMO-MALIGN NEOPLASM OF TAB 10/23/2016 BRYANT RODRIGUEZ MD, Ot V76.12 OTH SCREEN MAMMO-MALIGN NEOPLASM OF TAB 10/23/2016 BRYANT ORDRIGUEZ MD Ot Z12.31 ENCNTR SCREEN MAMMOGRAM FOR MALIGNANT NE 10/23/2016 BRYANT RODRIGUEZ MD Ot Z12.31 ENCNTR SCREEN MAMMOGRAM FOR MALIGNANT NE 10/23/2016 Ot V76.12 OTH SCREEN MAMMO-MALIGN NEOPLASM OF TAB 10/23/2016 Ot 724.4 LUMBOSACRAL NEURITIS NOS 10/23/2016 BRYANT RODRIGUEZ MD Ot 733.90 BONE CARTILAGE DIS NOS 10/23/2016 BRYANT RODRIGUEZ MD, Ot V76.12 OTH SCREEN MAMMO-MALIGN NEOPLASM OF TAB 10/23/2016 BRYANT RODRIGUEZ MD, Ot V76.12 OTH SCREEN MAMMO-MALIGN NEOPLASM OF TAB 10/23/2016 BRYANT RODRIGUEZ MD, Ot Z12.31 ENCNTR SCREEN MAMMOGRAM FOR MALIGNANT NE 10/23/2016 BRYANT RODRIGUEZ MD, Ot Z12.31 ENCNTR SCREEN MAMMOGRAM FOR MALIGNANT NE 10/23/2016 FRED GLASS MD Ot 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 BASAL CELL CARCINOMA OF SKIN OF NOSE 10/23/2016 FRED GLASS MD Ot Z01.810 ENCOUNTER FOR PREPROCEDURAL CARDIOVASCUL 10/23/2016 FRED GLASS MD Ot Z01.812 ENCOUNTER FOR PREPROCEDURAL LABORATORY E 10/23/2016 FRED GLASS MD Ot Z11.2 ENCOUNTER FOR SCREENING FOR OTHER BACTER 10/27/2016 FRED GLASS MD Ot C44.311 BASAL CELL CARCINOMA OF SKIN OF NOSE 10/27/2016 FRED GLASS MD Ot I10 ESSENTIAL (PRIMARY) HYPERTENSION 10/27/2016 FRED GLASS MD Ot Z79.899 OTHER RN CARDIOVASCULAR ICU (CURRENT) DRUG THERAPY 10/31/2016 FRED GLASS MD Ot 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 BASAL CELL CARCINOMA OF SKIN OF NOSE 10/31/2016 FRED GLASS MD P Ot I10 ESSENTIAL (PRIMARY) HYPERTENSION 10/31/2016 FRED GLASS MD P Ot Z79.899 OTHER RN CARDIOVASCULAR ICU (CURRENT) DRUG THERAPY 11/03/2016 FRED GLASS MD Ot 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 BASAL CELL CARCINOMA OF SKIN OF NOSE 11/03/2016 FRED GLASS MD Ot I10 ESSENTIAL (PRIMARY) HYPERTENSION 11/03/2016 FRED GLASS MD Ot Z79.899 OTHER [facility] (CURRENT) DRUG THERAPY 11/10/2016 FRED GLASS MD Ot C44.311 BASAL CELL CARCINOMA OF SKIN OF NOSE 11/10/2016 FRED GLASS MD Ot I10 ESSENTIAL (PRIMARY) HYPERTENSION 11/10/2016 FRED GLASS MD Ot Z79.899 OTHER [facility] (CURRENT) DRUG THERAPY 04/16/2017 BRYANT RODRIGUEZ MD, Ot Z12.31 ENCNTR SCREEN MAMMOGRAM FOR MALIGNANT NE 07/18/2017 GABRIELLA MARTINEZ MD Ot E78.00 PURE HYPERCHOLESTEROLEMIA, UNSPECIFIED 07/18/2017 GABRIELLA MARTINEZ MD Ot I10 ESSENTIAL (PRIMARY) HYPERTENSION 07/18/2017 GABRIELLA MARTINEZ MD, Ot R40.2142 COMA SCALE, EYES OPEN, SPONTANEOUS, EMR 07/18/2017 GABRIELLA MARTINEZ MD, Ot R40.2252 COMA SCALE, BEST VERBAL RESPONSE, ORIENT 07/18/2017 GABRIELLA MARTINEZ MD, Ot R40.2362 COMA SCALE, BEST MOTOR RESPONSE, OBEYS C 07/18/2017 GABRIELLA MARTINEZ MD Ot S00.83XA CONTUSION OF OTHER PART OF HEAD, INITIAL 07/18/2017 GABRIELLA MARTINEZ MD, Ot S61.511A LACERATION WITHOUT FOREIGN BODY OF RIGHT 07/18/2017 GABRIELLA MARTINEZ MD, Ot S70.312A ABRASION, LEFT THIGH, INITIAL ENCOUNTER 07/18/2017 GABRIELLA MARTINEZ MD, Ot W10.9XXA FALL (ON) (FROM) UNSPECIFIED STAIRS AND 07/18/2017 GABRIELLA MARTNIEZ MD, Ot W22.09XA STRIKING AGAINST OTHER STATIONARY OBJECT 07/18/2017 GABRIELLA MARTINEZ MD, Ot Y92.[address] [facility] PL[facility] NON-INSTITUT (PRIVATE 07/18/2017 GABRIELLA MARTINEZ MD, Ot Z23 ENCOUNTER FOR IMMUNIZATION 07/18/2017 GABRIELLA MARTINEZ MD, Ot Z79.82 [facility] (CURRENT) USE OF ASPIRIN 07/18/2017 GABRIELLA MARTINEZ MD, Ot Z85.828 PERSONAL HISTORY OF OTHER MALIGNANT NEOP 07/18/2017 GABRIELLA MARTINEZ MD, Ot Z88.2 ALLERGY STATUS TO SULFONAMIDES STATUS 07/18/2017 GABRIELLA MARTINEZ MD, Ot Z88.5 ALLERGY STATUS TO NARCOTIC AGENT STATUS 07/18/2017 GABRIELLA MARTINEZ MD, Ot Z90.49 ACQUIRED ABSENCE OF OTHER SPECIFIED PART 07/18/2017 GABRIELLA MARTINEZ MD, Ot Z90.710 ACQUIRED ABSENCE OF BOTH CERVIX AND UTER 07/20/2017 GABRIELLA MARTINEZ MD Ot E78.00 PURE HYPERCHOLESTEROLEMIA, UNSPECIFIED 07/20/2017 BRUEGGEMANN MD, GABRIELLA T Ot I10 ESSENTIAL (PRIMARY) HYPERTENSION 07/20/2017 GABRIELLA MARTINEZ MD, Ot R40.2142 COMA SCALE, EYES OPEN, SPONTANEOUS, EMR 07/20/2017 GABRIELLA MARTINEZ MD, Ot R40.2252 COMA SCALE, BEST VERBAL RESPONSE, ORIENT 07/20/2017 GABRIELLA MARTINEZ MD, Ot R40.2362 COMA SCALE, BEST MOTOR RESPONSE, OBEYS C 07/20/2017 GABRIELLA MARTINEZ MD Ot S00.83XA CONTUSION OF OTHER PART OF HEAD, INITIAL 07/20/2017 GABRIELLA MARTINEZ MD, Ot S61.511A LACERATION WITHOUT FOREIGN BODY OF RIGHT 07/20/2017 GABRIELLA MARTINEZ MD, Ot S70.312A ABRASION, LEFT THIGH, INITIAL ENCOUNTER 07/20/2017 GABRIELLA MARTINEZ MD, Ot W10.9XXA FALL (ON) (FROM) UNSPECIFIED STAIRS AND 07/20/2017 GABRIELLA MARTINEZ MD, Ot W22.09XA STRIKING AGAINST OTHER STATIONARY OBJECT 07/20/2017 GABRIELLA MARTINEZ MD, Ot Y92.[address] [facility] PLACE [facility] NON-INSTITUT (PRIVATE 07/20/2017 GABRIELLA MARTINEZ MD, Ot Z23 ENCOUNTER FOR IMMUNIZATION 07/20/2017 GABRIELLA MARTINEZ MD, Ot Z79.82 RN CARDIOVASCULAR ICU (CURRENT) USE OF ASPIRIN 07/20/2017 GABRIELLA MARTINEZ MD, Ot Z85.828 PERSONAL HISTORY OF OTHER MALIGNANT NEOP 07/20/2017 GABRIELLA MARTINEZ MD, Ot Z88.2 ALLERGY STATUS TO SULFONAMIDES STATUS 07/20/2017 GABRIELLA MARTINEZ MD, Ot Z88.5 ALLERGY STATUS TO NARCOTIC AGENT STATUS 07/20/2017 GABRIELLA MARTINEZ MD, Ot Z90.49 ACQUIRED ABSENCE OF OTHER SPECIFIED PART 07/20/2017 GABRIELLA MARTINEZ MD, Ot Z90.710 ACQUIRED ABSENCE OF BOTH CERVIX AND UTER 07/26/2017 RADHA MONGE APRN Ot R07.9 CHEST PAIN, UNSPECIFIED 07/26/2017 RADHA MONGE APRN Ot S80.12XD CONTUSION OF LEFT LOWER LEG, SUBSEQUENT 07/27/2017 Ot V76.12 OTH SCREEN MAMMO-MALIGN NEOPLASM OF TAB 07/27/2017 Ot 724.4 LUMBOSACRAL NEURITIS NOS 07/27/2017 MICHAEL ROSALES, BRYANT Wallace Ot 733.90 BONE CARTILAGE DIS NOS 07/27/2017 MICHAEL ROSALES, BRYANT Wallace Ot V76.12 OTH SCREEN MAMMO-MALIGN NEOPLASM OF TAB 07/27/2017 MICHAEL ROSALES, BRYANT Wallace Ot V76.12 OTH SCREEN MAMMO-MALIGN NEOPLASM OF TAB 07/27/2017 BRYANT RODRIGUEZ MD, Ot Z12.31 ENCNTR SCREEN MAMMOGRAM FOR MALIGNANT NE 07/27/2017 MICHAEL ROSALES, BRYANT Wallace Ot Z12.31 ENCNTR SCREEN MAMMOGRAM FOR MALIGNANT NE 07/27/2017 BRYANT RODRIGUEZ MD, Ot Z12.31 ENCNTR SCREEN MAMMOGRAM FOR MALIGNANT NE 07/27/2017 RADHA MONGE CRITICAL CARE RN Ot R07.9 CHEST PAIN, UNSPECIFIED 07/27/2017 RADHA MONGE R CRITICAL CARE RN Ot S80.12XD CONTUSION OF LEFT LOWER LEG, SUBSEQUENT 07/30/2017 RADHA MONGE R CRITICAL CARE RN Ot S70.12XA CONTUSION OF LEFT THIGH, INITIAL ENCOUNT 07/30/2017 RADHA MONGE R CRITICAL CARE RN Ot W10.9XXA FALL (ON) (FROM) UNSPECIFIED STAIRS AND 07/30/2017 ARGENIS MONGEINA R CRITICAL CARE RN Ot S70.12XA CONTUSION OF LEFT THIGH, INITIAL ENCOUNT 07/30/2017 RADHA MONGE R CRITICAL CARE RN Ot W10.9XXA FALL (ON) (FROM) UNSPECIFIED STAIRS AND 07/31/2017 RADHA MONGE R CRITICAL CARE RN Ot R07.9 CHEST PAIN, UNSPECIFIED 07/31/2017 RADHA MONGE R CRITICAL CARE RN Ot S80.12XD CONTUSION OF LEFT LOWER LEG, SUBSEQUENT 08/02/2017 MARIA LUISA ROSALES, FRED Nava Ot 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 08/02/2017 MARIA LUISA ROSALES, FRED Nava Ot Z01.810 ENCOUNTER FOR PREPROCEDURAL CARDIOVASCUL 08/02/2017 MARIA LUISA ROSALES, FRED Nava Ot Z01.812 ENCOUNTER FOR PREPROCEDURAL LABORATORY E 08/02/2017 FRED GLASS MD Ot Z11.2 ENCOUNTER FOR SCREENING FOR OTHER BACTER 08/03/2017 FRED GLASS MD Ot 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 08/03/2017 FRED GLASS MD Ot Z01.810 ENCOUNTER FOR PREPROCEDURAL CARDIOVASCUL 08/03/2017 FRED GLASS MD Ot Z01.812 ENCOUNTER FOR PREPROCEDURAL LABORATORY E 08/03/2017 FRED GLASS MD Ot Z11.2 ENCOUNTER FOR SCREENING FOR OTHER BACTER 08/09/2017 FRED GLASS MD Ot 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 08/09/2017 FRED GLASS MD Ot E78.00 PURE HYPERCHOLESTEROLEMIA, UNSPECIFIED 08/09/2017 FRED GLASS MD Ot I10 ESSENTIAL (PRIMARY) HYPERTENSION 08/09/2017 FRED GLASS MD Ot Z79.82 [facility] (CURRENT) USE OF ASPIRIN 08/09/2017 FRED GLASS MD Ot Z79.899 OTHER [facility] (CURRENT) DRUG THERAPY 08/13/2017 FRED GLASS MD Ot 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 08/13/2017 FRED GLASS MD Ot E78.00 PURE HYPERCHOLESTEROLEMIA, UNSPECIFIED 08/13/2017 FRED GLASS MD Ot I10 ESSENTIAL (PRIMARY) HYPERTENSION 08/13/2017 FRED GLASS MD Ot Z79.82 RN CARDIOVASCULAR ICU (CURRENT) USE OF ASPIRIN 08/13/2017 FRED GLASS MD Ot Z79.899 OTHER RN CARDIOVASCULAR ICU (CURRENT) DRUG THERAPY 08/15/2017 RADHA MONGE APRN Ot R07.9 CHEST PAIN, UNSPECIFIED 08/15/2017 RADHA MONGE CRITICAL CARE RN Ot S80.12XD CONTUSION OF LEFT LOWER LEG, SUBSEQUENT 08/16/2017 RADHA MONGE CRITICAL CARE RN Ot S70.12XA CONTUSION OF LEFT THIGH, INITIAL ENCOUNT 08/16/2017 RADHA MONGE APRN Ot W10.9XXA FALL (ON) (FROM) UNSPECIFIED STAIRS AND 08/24/2017 Dionicio MACKEY MD Ot E78.5 HYPERLIPIDEMIA, UNSPECIFIED 08/24/2017 Dionicio MACKEY MD Ot I08.3 COMB RHEUMATIC DISORD OF MITRAL, AORTIC 08/24/2017 KHALID MD, M MARIAH Ot I10 ESSENTIAL (PRIMARY) HYPERTENSION 08/24/2017 NARENDRA ROSALES, Dionicio LEMUS Ot I44.1 ATRIOVENTRICULAR BLOCK, SECOND DEGREE 09/12/2017 NARENDRA ROSALES, Dionicio LEMUS Ot E78.5 HYPERLIPIDEMIA, UNSPECIFIED 09/12/2017 NARENDRA ROSALES, Dionicio LEMUS Ot I08.3 COMB RHEUMATIC DISORD OF MITRAL, AORTIC 09/12/2017 NARENDRA ROSALES, Dionicio LEMUS Ot I10 ESSENTIAL (PRIMARY) HYPERTENSION 09/12/2017 NARENDRA ROSALES, Dionicio LEMUS Ot I44.1 ATRIOVENTRICULAR BLOCK, SECOND DEGREE 09/21/2017 NARENDRA ROSALES, Dionicio LEMUS Ot E78.5 HYPERLIPIDEMIA, UNSPECIFIED 09/21/2017 NARENDRA ROSALES, Dionicio LEMUS Ot I10 ESSENTIAL (PRIMARY) HYPERTENSION 09/21/2017 NARENDRA ROSALES, Dionicio LEMUS Ot I44.1 ATRIOVENTRICULAR BLOCK, SECOND DEGREE 11/11/2017 NARENDRA ROSALES, Dionicio LEMUS Ot E78.5 HYPERLIPIDEMIA, UNSPECIFIED 11/11/2017 NARENDRA ROSALES, Dionicio LEMUS Ot I10 ESSENTIAL (PRIMARY) HYPERTENSION 11/11/2017 NARENDRA ROSALES, Dionicio LEMUS Ot I44.1 ATRIOVENTRICULAR BLOCK, SECOND DEGREE 03/21/2018 BRYANT RODRIGUEZ MD, Ot Z12.31 ENCNTR SCREEN MAMMOGRAM FOR MALIGNANT NE 03/22/2018 BRYANT RODRIGUEZ MD, Ot Z12.31 ENCNTR SCREEN MAMMOGRAM FOR MALIGNANT NE 04/04/2018 BRYANT RODRIGUEZ MD Ot 733.90 BONE CARTILAGE DIS NOS 04/04/2018 BRYANT RODRIGUEZ MD, Ot V76.12 OTH SCREEN MAMMO-MALIGN NEOPLASM OF TAB 04/04/2018 BRYANT RODRIGUEZ MD, Ot V76.12 OTH SCREEN MAMMO-MALIGN NEOPLASM OF TAB 04/04/2018 BRYANT RODRIGUEZ MD, Ot Z12.31 ENCNTR SCREEN MAMMOGRAM FOR MALIGNANT NE 04/04/2018 BRYANT RODRIGUEZ MD, Ot Z12.31 ENCNTR SCREEN MAMMOGRAM FOR MALIGNANT NE 04/04/2018 BRYANT RODRIGUEZ MD, Ot Z12.31 ENCNTR SCREEN MAMMOGRAM FOR MALIGNANT NE 04/04/2018 RADHA MONGE APRN Ot R07.9 CHEST PAIN, UNSPECIFIED 04/04/2018 RADHA MONGE CRITICAL CARE RN Ot S80.12XD CONTUSION OF LEFT LOWER LEG, SUBSEQUENT 04/04/2018 RADHA MONGE CRITICAL CARE RN Ot S70.12XA CONTUSION OF LEFT THIGH, INITIAL ENCOUNT 04/04/2018 RADHA MONGE APRN Ot W10.9XXA FALL (ON) (FROM) UNSPECIFIED STAIRS AND 04/04/2018 NARENDRA ROSALES, Dionicio LEMUS Ot E78.5 HYPERLIPIDEMIA, UNSPECIFIED 04/04/2018 NARENDRA ROSALES, Dionicio LEMUS Ot I08.3 COMB RHEUMATIC DISORD OF MITRAL, AORTIC 04/04/2018 NARENDRA ROSALES, Dionicio LEMUS Ot I10 ESSENTIAL (PRIMARY) HYPERTENSION 04/04/2018 NARENDRA ROSALES, Dionicio LEMUS Ot I44.1 ATRIOVENTRICULAR BLOCK, SECOND DEGREE 04/04/2018 EDSON ROSALES, RAFA Vale Ot M47.816 SPONDYLOSIS W/O MYELOPATHY OR RADICULOPA 04/04/2018 EDSON ROSALES, RAFA Vale Ot M51.26 OTHER INTERVERTEBRAL DISC DISPLACEMENT, 04/04/2018 EDSON ROSALES, RAFA Vale Ot M99.73 CONN TISS AND DISC STENOS OF INTVRT FORA 04/04/2018 Ot E78.5 HYPERLIPIDEMIA, UNSPECIFIED 04/04/2018 Ot I10 ESSENTIAL ( PRIMARY) HYPERTENSION 04/04/2018 Ot I44.1 ATRIOVENTRICULAR BLOCK, SECOND DEGREE 04/04/2018 BRYANT RODRIGUEZ MD, Ot Z12.31 ENCNTR SCREEN MAMMOGRAM FOR MALIGNANT NE 04/05/2018 BRYANT RODRIGUEZ MD, Ot Z12.31 ENCNTR SCREEN MAMMOGRAM FOR MALIGNANT NE 04/26/2018 BRYANT RODRIGUEZ MD, Ot Z12.31 ENCNTR SCREEN MAMMOGRAM FOR MALIGNANT NE 05/08/2018 JUANA NÚÑEZ DO Ot Z01.818 ENCOUNTER FOR OTHER PREPROCEDURAL EXAMIN 05/09/2018 JUANA NÚÑEZ DO Ot Z01.818 ENCOUNTER FOR OTHER PREPROCEDURAL EXAMIN 05/09/2018 JUANA NÚÑEZ DO Ot Z01.818 ENCOUNTER FOR OTHER PREPROCEDURAL EXAMIN Procedures There is no data. Results Test Result Range Complete blood count (CBC) with automated white blood cell (WBC) differential - 10/23/16 14:00 Blood leukocytes automated count (number/volume) 4.9 10*3/uL 4.3-11.0 Blood erythrocytes automated count (number/volume) 4.03 10*6/uL 4.35-5.85 Venous blood hemoglobin measurement (mass/volume) 11.6 g/dL 11.5-16.0 Blood hematocrit (volume fraction) 36 % 35-52 Automated erythrocyte mean corpuscular volume 90 [foz_us] 80-99 Automated erythrocyte mean corpuscular hemoglobin (mass per erythrocyte) 29 pg 25-34 Automated erythrocyte mean corpuscular hemoglobin concentration measurement ( mass/volume) 32 g/dL 32-36 Automated erythrocyte distribution width ratio 13.4 % 10.0-14.5 Automated blood platelet count (count/volume) 203 10*3/uL 130-400 Automated blood platelet mean volume measurement 11.1 [foz_us] 7.4-10.4 Automated blood neutrophils/100 leukocytes 41 % 42-75 Automated blood lymphocytes/100 leukocytes 44 % 12-44 Blood monocytes/100 leukocytes 13 % 0-12 Automated blood eosinophils/100 leukocytes 2 % 0-10 Automated blood basophils/100 leukocytes 0 % 0-10 Blood neutrophils automated count (number/volume) 2.0 10*3 1.8-7.8 Blood lymphocytes automated count (number/volume) 2.1 10*3 1.0-4.0 Blood monocytes automated count (number/volume) 0.6 10*3 0.0-1.0 Automated eosinophil count 0.1 10*3/uL 0.0-0.3 Automated blood basophil count (count/volume) 0.0 10*3/uL 0.0-0.1 Whole blood basic metabolic panel - 10/23/16 14:00 Serum or plasma sodium measurement (moles/volume) 139 mmol/L 135-145 Serum or plasma potassium measurement (moles/volume) 4.1 mmol/L 3.6-5.0 Serum or plasma chloride measurement (moles/volume) 107 mmol/L 98-107 Carbon dioxide 23 mmol/L 21-32 Serum or plasma anion gap determination (moles/volume) 9 mmol/L 5-14 Serum or plasma urea nitrogen measurement (mass/volume) 17 mg/dL 7-18 Serum or plasma creatinine measurement (mass/volume) 0.80 mg/dL 0.60-1.30 Serum or plasma urea nitrogen/creatinine mass ratio 21 NRG Serum or plasma creatinine measurement with calculation of estimated glomerular filtration rate > NRG Serum or plasma glucose measurement (mass/volume) 156 mg/dL 70-105 Serum or plasma calcium measurement (mass/volume) 9.0 mg/dL 8.5-10.1 Methicillin resistant Staphylococcus aureus (MRSA) screening culture - 14:00 Methicillin resistant Staphylococcus aureus (MRSA) screening culture NEG NRG Complete blood count (CBC) with automated white blood cell (WBC) differential - 07/18/17 08:20 Blood leukocytes automated count (number/volume) 7.1 10*3/uL 4.3-11.0 Blood erythrocytes automated count (number/volume) 3.92 10*6/uL 4.35-5.85 Venous blood hemoglobin measurement (mass/volume) 11.5 g/dL 11.5-16.0 Blood hematocrit (volume fraction) 35 % 35-52 Automated erythrocyte mean corpuscular volume 89 [foz_us] 80-99 Automated erythrocyte mean corpuscular hemoglobin (mass per erythrocyte) 29 pg 25-34 Automated erythrocyte mean corpuscular hemoglobin concentration measurement ( mass/volume) 33 g/dL 32-36 Automated erythrocyte distribution width ratio 13.7 % 10.0-14.5 Automated blood platelet count (count/volume) 205 10*3/uL 130-400 Automated blood platelet mean volume measurement 11.2 [foz_us] 7.4-10.4 Automated blood neutrophils/100 leukocytes 69 % 42-75 Automated blood lymphocytes/100 leukocytes 14 % 12-44 Blood monocytes/100 leukocytes 16 % 0-12 Automated blood eosinophils/100 leukocytes 0 % 0-10 Automated blood basophils/100 leukocytes 0 % 0-10 Blood neutrophils automated count (number/volume) 4.9 10*3 1.8-7.8 Blood lymphocytes automated count (number/volume) 1.0 10*3 1.0-4.0 Blood monocytes automated count (number/volume) 1.2 10*3 0.0-1.0 Automated eosinophil count 0.0 10*3/uL 0.0-0.3 Automated blood basophil count (count/volume) 0.0 10*3/uL 0.0-0.1 PT panel in platelet poor plasma by coagulation assay - 07/18/17 08:20 Prothrombin time (PT) in platelet poor plasma by coagulation assay 14.5 s 12.2-14.7 INR in platelet poor plasma or blood by coagulation assay 1.1 0.8-1.4 Activated partial thromboplastin time (aPTT) in platelet poor plasma bycoagulation assay - 07/18/17 08:20 Activated partial thromboplastin time (aPTT) in platelet poor plasma bycoagulation assay 28 s 24-35 Comprehensive metabolic panel - 07/18/17 08:20 Serum or plasma sodium measurement (moles/volume) 140 mmol/L 135-145 Serum or plasma potassium measurement (moles/volume) 4.1 mmol/L 3.6-5.0 Serum or plasma chloride measurement (moles/volume) 107 mmol/L 98-107 Carbon dioxide 23 mmol/L 21-32 Serum or plasma anion gap determination (moles/volume) 10 mmol/L 5-14 Serum or plasma urea nitrogen measurement (mass/volume) 24 mg/dL 7-18 Serum or plasma creatinine measurement (mass/volume) 1.09 mg/dL 0.60-1.30 Serum or plasma urea nitrogen/creatinine mass ratio 22 NRG Serum or plasma creatinine measurement with calculation of estimated glomerular filtration rate 48 NRG Serum or plasma glucose measurement (mass/volume) 133 mg/dL 70-105 Serum or plasma calcium measurement (mass/volume) 9.9 mg/dL 8.5-10.1 Serum or plasma total bilirubin measurement (mass/volume) 0.9 mg/dL 0.1-1.0 Serum or plasma alkaline phosphatase measurement (enzymatic activity/volume) 70 U/L 40-136 Serum or plasma aspartate aminotransferase measurement (enzymatic activity/ volume) 20 U/L 5-34 Serum or plasma alanine aminotransferase measurement (enzymatic activity/volume ) 17 U/L 0-55 Serum or plasma protein measurement (mass/volume) 7.2 g/dL 6.4-8.2 Serum or plasma albumin measurement (mass/volume) 4.5 g/dL 3.2-4.5 Serum or plasma creatine kinase measurement (enzymatic activity/volume) - 07/18 08:20 Serum or plasma creatine kinase measurement (enzymatic activity/volume) 175 U/L 29-168 Complete urinalysis with reflex to culture - 07/18/17 09:49 Urine color determination YELLOW NRG Urine clarity determination CLEAR NRG Urine pH measurement by test strip 5 5-9 Specific gravity of urine by test strip 1.025 1.016- 1.022 Urine protein assay by test strip, semi-quantitative 2+ NEGATIVE Urine glucose detection by automated test strip NEGATIVE NEGATIVE Erythrocytes detection in urine sediment by light microscopy NEGATIVE NEGATIVE Urine ketones detection by automated test strip 1+ NEGATIVE Urine nitrite detection by test strip NEGATIVE NEGATIVE Urine total bilirubin detection by test strip NEGATIVE NEGATIVE Urine urobilinogen measurement by automated test strip (mass/volume) NORMAL NORMAL Urine leukocyte esterase detection by dipstick 1+ NEGATIVE Automated urine sediment erythrocyte count by microscopy (number/high power field) NONE NRG Automated urine sediment leukocyte count by microscopy (number/high power field ) [HPF] NRG Bacteria detection in urine sediment by light microscopy NEGATIVE NRG Squamous epithelial cells detection in urine sediment by light microscopy 10-25 NRG Crystals detection in urine sediment by light microscopy NONE NRG Casts detection in urine sediment by light microscopy NONE NRG Mucus detection in urine sediment by light microscopy MODERATE NRG Complete urinalysis with reflex to culture NO NRG Complete blood count (CBC) with automated white blood cell (WBC) differential - 07/25/17 10:50 Blood leukocytes automated count (number/volume) 6.4 10*3/uL 4.3-11.0 Blood erythrocytes automated count (number/volume) 3.60 10*6/uL 4.35-5.85 Venous blood hemoglobin measurement (mass/volume) 10.5 g/dL 11.5-16.0 Blood hematocrit (volume fraction) 33 % 35-52 Automated erythrocyte mean corpuscular volume 90 [foz_us] 80-99 Automated erythrocyte mean corpuscular hemoglobin (mass per erythrocyte) 29 pg 25-34 Automated erythrocyte mean corpuscular hemoglobin concentration measurement ( mass/volume) 32 g/dL 32-36 Automated erythrocyte distribution width ratio 14.1 % 10.0-14.5 Automated blood platelet count (count/volume) 245 10*3/uL 130-400 Automated blood platelet mean volume measurement 10.5 [foz_us] 7.4-10.4 Automated blood neutrophils/100 leukocytes 51 % 42-75 Automated blood lymphocytes/100 leukocytes 29 % 12-44 Blood monocytes/100 leukocytes 18 % 0-12 Automated blood eosinophils/100 leukocytes 2 % 0-10 Automated blood basophils/100 leukocytes 0 % 0-10 Blood neutrophils automated count (number/volume) 3.3 10*3 1.8-7.8 Blood lymphocytes automated count (number/volume) 1.9 10*3 1.0-4.0 Blood monocytes automated count (number/volume) 1.1 10*3 0.0-1.0 Automated eosinophil count 0.1 10*3/uL 0.0-0.3 Automated blood basophil count (count/volume) 0.0 10*3/uL 0.0-0.1 Complete blood count (CBC) with automated white blood cell (WBC) differential - 08/02/17 09:05 Blood leukocytes automated count (number/volume) 5.4 10*3/uL 4.3-11.0 Blood erythrocytes automated count (number/volume) 3.47 10*6/uL 4.35-5.85 Venous blood hemoglobin measurement (mass/volume) 10.0 g/dL 11.5-16.0 Blood hematocrit (volume fraction) 31 % 35-52 Automated erythrocyte mean corpuscular volume 91 [foz_us] 80-99 Automated erythrocyte mean corpuscular hemoglobin (mass per erythrocyte) 29 pg 25-34 Automated erythrocyte mean corpuscular hemoglobin concentration measurement ( mass/volume) 32 g/dL 32-36 Automated erythrocyte distribution width ratio 13.9 % 10.0-14.5 Automated blood platelet count (count/volume) 281 10*3/uL 130-400 Automated blood platelet mean volume measurement 10.2 [foz_us] 7.4-10.4 Automated blood neutrophils/100 leukocytes 56 % 42-75 Automated blood lymphocytes/100 leukocytes 25 % 12-44 Blood monocytes/100 leukocytes 18 % 0-12 Automated blood eosinophils/100 leukocytes 1 % 0-10 Automated blood basophils/100 leukocytes 0 % 0-10 Blood neutrophils automated count (number/volume) 3.0 10*3 1.8-7.8 Blood lymphocytes automated count (number/volume) 1.4 10*3 1.0-4.0 Blood monocytes automated count (number/volume) 0.9 10*3 0.0-1.0 Automated eosinophil count 0.1 10*3/uL 0.0-0.3 Automated blood basophil count (count/volume) 0.0 10*3/uL 0.0-0.1 Whole blood basic metabolic panel - 08/02/17 09:05 Serum or plasma sodium measurement (moles/volume) 140 mmol/L 135-145 Serum or plasma potassium measurement (moles/volume) 4.4 mmol/L 3.6-5.0 Serum or plasma chloride measurement (moles/volume) 107 mmol/L 98-107 Carbon dioxide 23 mmol/L 21-32 Serum or plasma anion gap determination (moles/volume) 10 mmol/L 5-14 Serum or plasma urea nitrogen measurement (mass/volume) 15 mg/dL 7-18 Serum or plasma creatinine measurement (mass/volume) 0.80 mg/dL 0.60-1.30 Serum or plasma urea nitrogen/creatinine mass ratio 19 NRG Serum or plasma creatinine measurement with calculation of estimated glomerular filtration rate > NRG Serum or plasma glucose measurement (mass/volume) 107 mg/dL 70-105 Serum or plasma calcium measurement (mass/volume) 9.3 mg/dL 8.5-10.1 Methicillin resistant Staphylococcus aureus (MRSA) screening culture - 09:10 Methicillin resistant Staphylococcus aureus (MRSA) screening culture NEG NRG Encounters ACCT No. Visit Date/Time Discharge Status Pt. Type Provider Facility Loc./Unit Complaint [id number] 05/09/2018 08:00:00 05/09/2018 12:45:00 DIS Outpatient JUANA NÚÑEZ DO [facility] PREOP COLONOSCOPY/EGD [id number] 04/04/2018 09:58:00 04/04/2018 23:59:59 CLS Outpatient BRYANT RODRIGUEZ MD [facility] RAD SCREENING [id number] 10/11/2017 08:41:00 10/11/2017 23:59:59 CLS Outpatient RAFA SANDHU MD [facility] RAD LOW BACK PAIN [id number] 08/23/2017 08:50:00 08/23/2017 23:59:59 CLS Outpatient Dionicio MACKEY MD [facility] CARD I10 HTN [id number] 08/13/2017 07:18:00 08/13/2017 23:59:59 CLS Outpatient Dionicio MACKEY MD [facility] CARD I10 HTN [id number] 08/09/2017 07:30:00 08/09/2017 13:55:00 DIS Outpatient FRED GLASS MD [facility] RIGHT NASAL TIP LESION, SQUAMOUS CELL CARCINOMA [id number] 08/02/2017 08:42:00 08/02/2017 10:33:00 DIS Outpatient FRED GLASS MD [facility] PREOP RIGHT NASAL TIP LESION, SQUAMOUS CELL CARCINOMA [id number] 07/27/2017 14:16:00 07/27/2017 23:59:59 CLS Outpatient RADHA MONGE CRITICAL CARE RN [facility] RAD HEMATOMA OF LT LOWER EXT SUBSEQUENT ENCOUNTER [id number] 07/25/2017 10:46:00 07/25/2017 23:59:59 CLS Outpatient RADHA MONGE CRITICAL CARE RN [facility] LAB S80.12XD [id number] 07/18/2017 07:51:00 07/18/2017 11:48:00 DIS Emergency JUAN ROSALES, GABRIELLA Jensen [facility] ER FALL X 1 DAY--LEFT SIDE PAIN [id number] 03/23/2017 11:55:00 03/23/2017 23:59:59 CLS Outpatient BRYANT RODRIGUEZ MD [facility] RAD ROUTINE SCREENING [id number] 10/27/2016 07:20:00 10/27/2016 13:20:00 DIS Outpatient FRED GLASS MD [facility] NASAL BASAL CELL CARSINOMA [id number] 10/23/2016 13:32:00 10/23/2016 14:05:00 DIS Outpatient FRED GLASS MD [facility] PREOP NASAL BASAL CELL CARSANOMA [id number] 03/21/2016 09:50:00 03/21/2016 23:59:59 CLS Outpatient BRYANT RODRIGUEZ MD [facility] RAD ROUTINE SCREENING [id number] 03/17/2015 09:45:00 03/17/2015 23:59:59 CLS Outpatient BRYANT RODRIGUEZ MD [facility] RAD ROUTINE MAMMOGRAM SCREENING [id number] 03/12/2014 08:51:00 03/12/2014 23:59:59 CLS Outpatient BRYANT RODRIGUEZ MD [facility] RAD SCREENING [id number] 05/03/2013 12:41:00 05/03/2013 14:35:00 DIS Emergency QUINCY PACKER APRN [facility] ER FALL, BACK PAIN [id number] 03/07/2013 08:34:00 03/07/2013 23:59:59 CLS Outpatient BRYANT RODRIGUEZ MD [facility] RAD SCREENING, OSTEOPOROSIS [id number] 09/12/2012 08:15:00 09/12/2012 23:59:59 CLS Outpatient [id number] 05/14/2018 07:04:00 ACT Outpatient JUANA NÚÑEZ DO [facility] ENDO SCREENING/GERD [id number] 11/12/2017 08:00:00 Document Registration [id number] 06/27/2012 09:39:00 Document Registration [id number] 02/29/2012 08:49:00 Document Registration [id number] 02/16/2011 09:50:00 Document Registration [id number] 02/10/2010 09:04:00 Document Registration [id number] 07/15/2009 09:29:00 Document Registration [id number] 01/28/2009 11:32:00 Document Registration [id number] 01/28/2009 11:16:00 Document Registration
[2018-05-14] MEDS ORDERED: PROPOFOL INJECTION 50 ML IV ONE (07:27)
[2018-05-14] MEDS ORDERED: LACTATED RINGERS 1,000 ML IV STA (07:38)
[2018-05-14 07:42] VITALS: BP 157/82
[2018-05-14] MEDS ORDERED: HURRICAINE EXT TUBE (BENZOCAINE) XX PRN (07:45)
[2018-05-14] MEDS ORDERED: ATROPINE INJ 0.4 MG/ML SDV ONE (08:21)
[2018-05-14] MEDS ORDERED: GLYCOPYRROLATE 0.2 MG/ML (ROBINUL) 2 ML VIAL ONE (08:21)
--- NOTE | 2018-05-14 09:05 | Progress Note-Post Operative ---
Post-Operative Progess Note Surgeon (s)/Automotive Artist (s) Surgeon JUANA NÚÑEZ DO Automotive Artist: na Pre-Operative Diagnosis gerd, screening colonoscopy Post-Operative Diagnosis hiatal hernia, gastritis, diverticulosis Procedure & Operative Findings Date of Procedure 05/14/18 Procedure Performed/Findings egd c biopsies colonoscopy Anesthesia Type per store cashier Estimated Blood Loss Estimated blood loss (mL): none Specimens/Packing Specimens Removed antrum, ge JUANA NÚÑEZ DO May 14, 2018 09:05
[2018-05-14] MEDS ORDERED: OMEP20CA12 PO (09:06)
--- NOTE | 2018-05-14 09:07 | Discharge Inst-Simple/Standard ---
Discharge Inst-Standard Discharge Medications New, Converted or Re-Newed RX: Transmitted to Pharmacy Patient Instructions/Follow Up Plan of Care/Instructions/FU: 2 weeks Greta Activity as Tolerated: Yes Discharge Diet: Regular Diet JUANA NÚÑEZ DO May 14, 2018 09:07
[2018-05-14 09:35] VITALS: BP 134/73
[2018-05-14 10:05] VITALS: BP 138/73
[2018-05-14 10:15] VITALS: BP 138/73
--- NOTE | 2018-05-14 11:52 | Anesthesia-General Post-Op ---
MAC Patient Condition Mental Status/LOC: Same as Preop Cardiovascular: Satisfactory Nausea/Vomiting: Absent Respiratory: Satisfactory Pain: Controlled Complications: Absent Post Op Complications Complications None Follow Up Care/Instructions Patient Instructions None needed. Anesthesiology Discharge Order Discharge Order Patient is doing well, no complaints, stable vital signs, no apparent adverse anesthesia problems. No complications reported per nursing. YESENIA BLACK CRNA May 14, 2018 11:52
--- NOTE | 2018-05-14 12:40 | OPERATIVE REPORT ---
DATE OF SERVICE: 05/14/2018 PREOPERATIVE DIAGNOSES: Gastroesophageal reflux disease, screening colonoscopy. POSTOPERATIVE DIAGNOSES: Hiatal hernia, gastritis, diverticulosis. PROCEDURE: EGD with biopsies, colonoscopy. SURGEON: Juana Hernandes DO ANESTHESIA: Per COLD WATER MACHINE OPERATOR. ESTIMATED BLOOD LOSS: None. COMPLICATIONS: None. INDICATIONS: The patient is an 83-year-old female who has been having reflux symptoms and is due for screening colonoscopy. She understands risks and benefits of procedures and wished to proceed with procedures. Consent was signed in the chart. DESCRIPTION OF PROCEDURE: The patient was taken to the endoscopy suite, placed in left lateral recumbent position. Timeout was performed. Scope was inserted in the mouth, down the esophagus, stomach and into the duodenum without difficulty. There were no polyps, mass or ulcerations within the duodenum. Scope was slowly retracted back into the stomach, which was further insufflated, noting a fair amount of erythematous changes consistent with gastritis. Biopsy of the antrum was obtained. Scope was retroflexed noting moderate sized hiatal hernia. No other pathology noted. Scope was then returned to its normal position, slowly withdrawn to the distal esophagus where biopsy of the GE junction was obtained. No polyps, masses or ulcerations. Scope was slowly retracted back to completely remove, noting no other pathology. Digital rectal exam was performed. There were no palpable polyps, masses or ulcerations. Scope was inserted in the rectum, advanced all the way to cecum with minimal difficulty. Prep was adequate. Scope was then slowly retracted back. There were no polyps, mass or ulcerations within the cecum, ascending, transverse, descending and sigmoid colon. There was a minimal amount of diverticulosis throughout the entire colon. Once in the rectum, scope was retroflexed noting no other pathology. Scope was returned to its normal position, slowly withdrawn until completely removed, noting no other pathology. RECOMMENDATIONS: The patient will be started on omeprazole 20 mg daily. We will await biopsy results and have her follow up in two weeks to discuss and see how she is doing at that time. The patient does not need any further colonoscopies unless any issues. Job ID: [id number] DocumentID: [id number] Dictated Date: 05/14/2018 09:11:40 Integration Consultant Date: 05/14/2018 12:39:40 Dictated By: JUANA HERNANDES DO
== END 2018-05-14 10:20 | disposition home or self-care (01) ==
LOC: ENDO 07:04
PROVIDERS: ATTEND Surgery
DX: Z12.11 Encounter for screening for malignant neoplasm of colon (principal); K57.30 Diverticulosis of large intestine without perforation or abscess without bleeding; K21.9 Gastro-esophageal reflux disease without esophagitis; K44.9 Diaphragmatic hernia without obstruction or gangrene; K29.70 Gastritis, unspecified, without bleeding; I10 Essential (primary) hypertension; E78.5 Hyperlipidemia, unspecified; I35.1 Nonrheumatic aortic (valve) insufficiency; Z79.82 Long term (current) use of aspirin; Z79.899 Other long term (current) drug therapy
CPT/HCPCS: 43239; G0121

== ENCOUNTER 2018-07-16 16:17 | Inpatient (IN) | payer MEDICARE, OTHER ==
[~2018-07-16] VITALS: Ht 160 cm; Wt 54.6 kg
[~2018-07-16 16:17] MED LIST changes: +OMEP20CA12 PO
--- OUTSIDE RECORDS SUMMARY | 2018-07-16 16:22 | XMS REPORT | Continuity of Care Document ---
Author Organization Unknown Address Unknown Allergies Active Description Code Type Severity Reaction Onset Reported/Identified Relationship to Patient Clinical Status Yes morphine [id number] Drug Allergy Unknown N/A 10/27/2016 Yes Sulfa (Sulfonamide Antibiotics) [id number] Drug Allergy Unknown N/A 2016 Yes morphine [id number] Drug Allergy Moderate CONFUSION 05/14/2018 Yes Sulfa (Sulfonamide Antibiotics) [id number] Drug Allergy Mild HIVES 2018 Medications There is no data. Problems Date Dx Coded Attending Type Code Diagnosis Diagnosed By 05/03/2013 QUINCY PACKER APRN Ot 719.41 JOINT PAIN-SHLDER 05/03/2013 QUINCY PACKER APRN Ot 719.45 JOINT PAIN-PELVIS 05/03/2013 QUINCY PACKER APRN Ot 724.5 BACKACHE NOS 05/03/2013 QUINCY PACKER WATER TREATMENT PLANT OPERATOR Ot 784.0 HEADACHE 05/03/2013 QUINCY PACKER APRN Ot 924.9 CONTUSION NOS 05/03/2013 QUINCY PACKER APRN Ot 959.19 OTH INJURY OF OTHER SITES OF TRUNK 05/03/2013 QUINCY PACKER APRN Ot E000.8 OTHER EXTERNAL CAUSE STATUS 05/03/2013 QUINCY PACKER APRN Ot E849.6 ACCIDENT IN PUBLIC BLDG 05/03/2013 QUINCY PACKER WATER TREATMENT PLANT OPERATOR Ot E885.9 FALL FROM SLIPPING, TRIPPING, OR STUMBLI 03/12/2014 Ot 715.35 03/12/2014 Ot 724.6 03/12/2014 Ot 733.00 03/12/2014 Ot V76.12 03/12/2014 Ot 715.35 03/12/2014 Ot 724.6 03/12/2014 Ot 733.00 03/12/2014 Ot V76.12 03/12/2014 Ot 729.5 03/12/2014 Ot V76.12 03/12/2014 Ot 733.90 03/12/2014 Ot V76.12 03/12/2014 Ot V76.12 03/12/2014 Ot 724.4 03/12/2014 MICHAEL ROSALES, BRYANT Wallace Ot 733.90 03/12/2014 MICHAEL ROSALES, BRYANT Wallace Ot V76.12 03/24/2014 MICHAEL ROSALES, BRYANT Wallace Ot V76.12 04/01/2014 MICHAEL ROSALES, BRYANT Wallace Ot V76.12 03/17/2015 Ot V76.12 03/17/2015 Ot 733.90 03/17/2015 Ot V76.12 03/17/2015 Ot V76.12 03/17/2015 Ot 724.4 03/17/2015 MICHAEL ROSALES, BRYANT Wallace Ot 733.90 03/17/2015 MICHAEL ROSALES, BRYANT Rodrigo [...] Ot 733.90 BONE CARTILAGE DIS NOS 10/23/2016 MICHAEL ROSALES, BRYANT Wallace Ot V76.12 OTH [...] MAMMO-MALIGN NEOPLASM OF TAB 10/23/2016 BRYANT RODRIGUEZ MD Ot V76.12 OTH SCREEN MAMMO-MALIGN NEOPLASM OF TAB 10/23/2016 BRYANT RODRIGUEZ MD Ot Z12.31 ENCNTR [...] MAMMO-MALIGN NEOPLASM OF TAB 10/23/2016 BRYANT RODRIGUEZ MD Ot V76.12 OTH [...] ESSENTIAL (PRIMARY) HYPERTENSION 10/27/2016 FRED GLASS MD P Ot Z79.899 OTHER SENIOR LIVING (CURRENT) DRUG THERAPY 10/31/2016 FRED GLASS MD Ot C44.311 BASAL CELL CARCINOMA OF SKIN OF NOSE 10/31/2016 FRED GLASS MD P Ot I10 ESSENTIAL (PRIMARY) HYPERTENSION 10/31/2016 FRED GLASS MD P Ot Z79.899 OTHER SENIOR LIVING (CURRENT) DRUG THERAPY 11/03/2016 FRED GLASS MD Ot C44.311 BASAL CELL CARCINOMA OF SKIN OF NOSE 11/03/2016 FRED GLASS MD P Ot I10 ESSENTIAL (PRIMARY) HYPERTENSION 11/03/2016 FRED GLASS MD P Ot Z79.899 OTHER [employer] [place] (CURRENT) DRUG THERAPY 11/10/2016 FRED GLASS MD Ot C44.311 BASAL CELL CARCINOMA OF SKIN OF NOSE 11/10/2016 FRED GLASS MD P Ot I10 ESSENTIAL (PRIMARY) HYPERTENSION 11/10/2016 FRED GLASS MD P Ot Z79.899 OTHER [facility]IOR [facility]IVING (CURRENT) DRUG THERAPY 04/16/2017 BRYANT RODRIGUEZ MD, Ot Z12.31 ENCNTR SCREEN MAMMOGRAM FOR MALIGNANT NE 07/18/2017 JUAN ROSALES, GABRIELLA Jensen Ot E78.00 PURE HYPERCHOLESTEROLEMIA, UNSPECIFIED 07/18/2017 JUAN ROSALES, GABRIELLA T Ot I10 ESSENTIAL (PRIMARY) HYPERTENSION 07/18/2017 GABRIELLA MARTINEZ MD, Ot R40.2142 COMA SCALE, EYES OPEN, SPONTANEOUS, EMR 07/18/2017 GABRIELLA MARTINEZ MD, Ot R40.2252 COMA SCALE, BEST VERBAL RESPONSE, ORIENT 07/18/2017 GABRIELLA MARTINEZ MD, Ot R40.2362 COMA SCALE, BEST MOTOR RESPONSE, OBEYS C 07/18/2017 GABRIELLA MARTINEZ MD, Ot S00.83XA CONTUSION OF OTHER PART OF HEAD, INITIAL 07/18/2017 GABRIELLA MARTINEZ MD, Ot S61.511A LACERATION WITHOUT FOREIGN BODY OF RIGHT 07/18/2017 GABRIELLA MARTINEZ MD, Ot S70.312A ABRASION, LEFT THIGH, INITIAL ENCOUNTER 07/18/2017 GABRIELLA MARTINEZ MD, Ot W10.9XXA FALL (ON) (FROM) UNSPECIFIED STAIRS AND 07/18/2017 GABRIELLA MARTINEZ MD, Ot W22.09XA STRIKING AGAINST OTHER STATIONARY OBJECT 07/18/2017 GABRIELLA MARTINEZ MD, Ot Y92.[address] [facility] PL[facility] NON-INSTITUT (PRIVATE 07/18/2017 GABRIELLA MARTINEZ MD, Ot Z23 ENCOUNTER FOR IMMUNIZATION 07/18/2017 GABRIELLA MARTINEZ MD, Ot Z79.82 [facility]IV[facility] (CURRENT) USE OF ASPIRIN 07/18/2017 GABRIELLA MARTINEZ [...] BOTH CERVIX AND UTER 07/20/2017 GABRIELLA MARTINEZ MD, Ot E78.00 PURE HYPERCHOLESTEROLEMIA, UNSPECIFIED 07/20/2017 GABRIELLA MARTINEZ MD Ot I10 ESSENTIAL (PRIMARY) HYPERTENSION 07/20/2017 GABRIELLA MARTINEZ MD, Ot R40.2142 COMA SCALE, EYES OPEN, SPONTANEOUS, EMR 07/20/2017 GABRIELLA MARTINEZ MD, Ot R40.2252 COMA SCALE, BEST VERBAL RESPONSE, ORIENT 07/20/2017 GABRIELLA MARTINEZ MD, Ot R40.2362 COMA SCALE, BEST MOTOR RESPONSE, OBEYS C 07/20/2017 GABRIELLA MARTINEZ MD, Ot S00.83XA CONTUSION OF OTHER PART OF [...] IMMUNIZATION 07/20/2017 GABRIELLA MARTINEZ MD, Ot Z79.82 [employer] [place] (CURRENT) USE OF ASPIRIN 07/20/2017 GABRIELLA MARTINEZ [...] 07/27/2017 Ot 724.4 LUMBOSACRAL NEURITIS NOS 07/27/2017 BRYANT RODRIGUEZ MD Ot 733.90 BONE CARTILAGE DIS NOS 07/27/2017 BRYANT RODRIGUEZ MD, Ot V76.12 OTH SCREEN MAMMO-MALIGN NEOPLASM OF TAB 07/27/2017 BRYANT RODRIGUEZ MD, Ot V76.12 OTH SCREEN MAMMO-MALIGN NEOPLASM OF TAB 07/27/2017 BRYANT RODRIGUEZ MD, Ot Z12.31 ENCNTR SCREEN MAMMOGRAM FOR MALIGNANT NE 07/27/2017 BRYANT RODRIGUEZ MD, Ot Z12.31 ENCNTR SCREEN MAMMOGRAM FOR MALIGNANT NE 07/27/2017 BRYANT RODRIGUEZ MD, Ot Z12.31 ENCNTR SCREEN MAMMOGRAM FOR MALIGNANT NE 07/27/2017 RADHA MONGE WATER TREATMENT PLANT OPERATOR Ot R07.9 CHEST PAIN, UNSPECIFIED 07/27/2017 RADHA MONGE R W[employer] TREATMENT PLANT OPERATOR Ot S80.12XD CONTUSION OF LEFT LOWER LEG, SUBSEQUENT 07/30/2017 ARGENIS MONGEINA R WATER TREATMENT PLANT OPERATOR Ot S70.12XA CONTUSION OF LEFT THIGH, INITIAL ENCOUNT 07/30/2017 RADHA MONGE R WATER TREATMENT PLANT OPERATOR Ot W10.9XXA FALL (ON) (FROM) UNSPECIFIED STAIRS AND 07/30/2017 SALEEM, RADHA R WATER TREATMENT PLANT OPERATOR Ot S70.12XA CONTUSION OF LEFT THIGH, INITIAL ENCOUNT 07/30/2017 RADHA MONGE R WATER TREATMENT PLANT OPERATOR Ot W10.9XXA FALL (ON) (FROM) UNSPECIFIED STAIRS AND 07/31/2017 RADHA MONGE R WATER TREATMENT PLANT OPERATOR Ot R07.9 CHEST PAIN, UNSPECIFIED 07/31/2017 RADHA MONGE R WATER TREATMENT PLANT OPERATOR Ot S80.12XD CONTUSION OF LEFT LOWER LEG, SUBSEQUENT 08/02/2017 MARIA LUISA ROSALES, FRED Nava Ot 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 08/02/2017 MARIA LUISA ROSALES, FRED Nava Ot Z01.810 ENCOUNTER FOR PREPROCEDURAL CARDIOVASCUL 08/02/2017 FRED GLASS MD Ot Z01.812 ENCOUNTER FOR [...] SCREENING FOR OTHER BACTER 08/09/2017 FRED GLASS MD, Ot 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 08/09/2017 FRED GLASS MD Ot E78.00 PURE HYPERCHOLESTEROLEMIA, UNSPECIFIED 08/09/2017 FRED GLASS MD Ot I10 ESSENTIAL (PRIMARY) HYPERTENSION 08/09/2017 FRED GLASS MD Ot Z79.82 [employer] [place] (CURRENT) USE OF ASPIRIN 08/09/2017 FRED GLASS MD Ot Z79.899 OTHER [employer] [place] (CURRENT) DRUG THERAPY 08/13/2017 FRED GLASS MD Ot 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 08/13/2017 FRED GLASS MD Ot E78.00 PURE HYPERCHOLESTEROLEMIA, UNSPECIFIED 08/13/2017 FRED GLASS MD Ot I10 ESSENTIAL (PRIMARY) HYPERTENSION 08/13/2017 FRED GLASS MD Ot Z79.82 [facility]IV[facility] (CURRENT) USE OF ASPIRIN 08/13/2017 FRED GLASS MD Ot Z79.899 OTHER SENIOR LIVING (CURRENT) DRUG THERAPY 08/15/2017 RADHA MONGE WATER TREATMENT PLANT OPERATOR Ot R07.9 CHEST PAIN, UNSPECIFIED 08/15/2017 RADHA MONGE WATER TREATMENT PLANT OPERATOR Ot S80.12XD CONTUSION OF LEFT LOWER LEG, SUBSEQUENT 08/16/2017 RADHA MONGE WATER TREATMENT PLANT OPERATOR Ot S70.12XA CONTUSION OF LEFT THIGH, INITIAL ENCOUNT 08/16/2017 RADHA MONGE WATER TREATMENT PLANT OPERATOR Ot W10.9XXA FALL (ON) (FROM) UNSPECIFIED STAIRS AND 08/24/2017 Dionicio MACKEY MD Ot E78.5 HYPERLIPIDEMIA, UNSPECIFIED 08/24/2017 Dionicio MACKEY MD Ot I08.3 COMB RHEUMATIC DISORD OF MITRAL, AORTIC 08/24/2017 Dionicio MACKEY MD Ot I10 ESSENTIAL (PRIMARY) HYPERTENSION 08/24/2017 NARENDRA [...] ATRIOVENTRICULAR BLOCK, SECOND DEGREE 03/21/2018 BRYANT RODRIGUEZ MD Ot Z12.31 ENCNTR SCREEN MAMMOGRAM FOR MALIGNANT NE 03/22/2018 BRYANT RODRIGUEZ MD, Ot Z12.31 ENCNTR SCREEN MAMMOGRAM FOR MALIGNANT NE 04/04/2018 BRYANT RODRIGUEZ MD Ot 733.90 BONE CARTILAGE DIS NOS 04/04/2018 BRYANT RODRIGUEZ MD, Ot V76.12 OT SCREEN MAMMO-MALIGN NEOPLASM OF TAB 04/04/2018 BRYANT RODRIGUEZ MD, Ot V76.12 OTH SCREEN MAMMO-MALIGN NEOPLASM OF TAB 04/04/2018 BRYANT RODRIGUEZ MD, Ot Z12.31 ENCNTR SCREEN MAMMOGRAM FOR MALIGNANT NE 04/04/2018 BRYANT RODRIGUEZ MD, Ot Z12.31 ENCNTR SCREEN MAMMOGRAM FOR MALIGNANT NE 04/04/2018 BRYANT RODRIGUEZ MD, Ot Z12.31 ENCNTR SCREEN MAMMOGRAM FOR MALIGNANT NE 04/04/2018 RADHA MONGE APRN Ot R07.9 CHEST PAIN, UNSPECIFIED 04/04/2018 SALEEM RADHA Vale WATER TREATMENT PLANT OPERATOR Ot S80.12XD CONTUSION OF LEFT LOWER LEG, SUBSEQUENT 04/04/2018 RADHA MONGE WATER TREATMENT PLANT OPERATOR Ot S70.12XA CONTUSION OF LEFT THIGH, INITIAL [...] M47.816 SPONDYLOSIS W/O MYELOPATHY OR RADICULOPA 04/04/2018 RAFA SANDHU MD Ot M51.26 OTHER INTERVERTEBRAL DISC DISPLACEMENT, 04/04/2018 RAFA SANDHU MD Ot M99.73 CONN TISS AND DISC STENOS OF INTVRT FORA 04/04/2018 Ot E78.5 HYPERLIPIDEMIA, UNSPECIFIED 04/04/2018 Ot I10 ESSENTIAL ( PRIMARY) HYPERTENSION 04/04/2018 Ot I44.1 ATRIOVENTRICULAR BLOCK, SECOND DEGREE 04/04/2018 BRYANT RODRIGUEZ MD Ot Z12.31 ENCNTR SCREEN MAMMOGRAM FOR MALIGNANT NE 04/05/2018 BRYANT RODRIGUEZ MD Ot Z12.31 ENCNTR SCREEN MAMMOGRAM FOR MALIGNANT NE 04/26/2018 BRYANT RODRIGUEZ MD Ot Z12.31 ENCNTR SCREEN MAMMOGRAM FOR MALIGNANT NE 05/08/2018 JUANA NÚÑEZ DO Ot Z01.818 ENCOUNTER FOR OTHER PREPROCEDURAL EXAMIN 05/09/2018 JUANA NÚÑEZ DO Ot Z01.818 ENCOUNTER FOR OTHER PREPROCEDURAL EXAMIN 05/09/2018 JUANA NÚÑEZ DO Ot Z01.818 ENCOUNTER FOR OTHER PREPROCEDURAL EXAMIN 05/14/2018 JUANA NÚÑEZ DO Ot E78.5 HYPERLIPIDEMIA, UNSPECIFIED 05/14/2018 JUANA NÚÑEZ DO Ot I10 ESSENTIAL (PRIMARY) HYPERTENSION 05/14/2018 JUANA NÚÑEZ DO Ot I35.1 NONRHEUMATIC AORTIC (VALVE) INSUFFICIENC 05/14/2018 JUANA NÚÑEZ DO Ot K21.9 GASTRO-ESOPHAGEAL REFLUX DISEASE WITHOUT 05/14/2018 JUANA NÚÑEZ DO Ot K29.70 GASTRITIS, UNSPECIFIED, WITHOUT BLEEDING 05/14/2018 JUANA NÚÑEZ DO Ot K44.9 DIAPHRAGMATIC HERNIA WITHOUT OBSTRUCTION 05/14/2018 JUANA NÚÑEZ DO Ot K57.30 DVRTCLOS OF LG INT W/O PERFORATION OR AB 05/14/2018 JUANA NÚÑEZ DO Ot Z12.11 ENCOUNTER FOR SCREENING FOR MALIGNANT NE 05/14/2018 JUANA NÚÑEZ DO Ot Z79.82 SENIOR LIVING (CURRENT) USE OF ASPIRIN 05/14/2018 JUANA NÚÑEZ DO Ot Z79.899 OTHER [employer] [place] (CURRENT) DRUG THERAPY Procedures There is no data. Results Test [...] Status Pt. Type Provider Facility Loc./Unit Complaint [id number] 05/14/2018 07:04:00 05/14/2018 10:20:00 DIS Outpatient JUANA NÚÑEZ DO [facility] ENDO SCREENING/GERD [id number] 05/09/2018 08:00:00 05/09/2018 12:45:00 DIS Outpatient JUANA NÚÑEZ DO [facility] PREOP COLONOSCOPY/EGD [id number] 04/04/2018 09:58:00 04/04/2018 23:59:59 CLS Outpatient BYRANT RODRIGUEZ MD [facility] RAD SCREENING [id number] 10/11/2017 08:41:00 10/11/2017 23:59:59 CLS Outpatient RAFA SANDHU MD [facility] RAD LOW BACK PAIN [id number] 08/23/2017 08:50:00 08/23/2017 23:59:59 CLS Outpatient Dionicio MACKEY MD [facility] CARD I10 HTN [id number] 08/13/2017 07:18:00 08/13/2017 23:59:59 CLS Outpatient Dionicio MACKEY MD [facility] CARD I10 HTN [id number] 08/09/2017 07:30:00 08/09/2017 13:55:00 DIS Outpatient FRED GLASS MD [facility] SDC RIGHT NASAL TIP LESION, SQUAMOUS CELL CARCINOMA [id number] 08/02/2017 08:42:00 08/02/2017 10:33:00 DIS Outpatient FRED GLASS MD [facility] PREOP RIGHT NASAL TIP LESION, SQUAMOUS CELL CARCINOMA [id number] 07/27/2017 14:16:00 07/27/2017 23:59:59 CLS Outpatient RADHA MONGE APRN [facility] RAD HEMATOMA OF LT LOWER EXT SUBSEQUENT ENCOUNTER [id number] 07/25/2017 10:46:00 07/25/2017 23:59:59 CLS Outpatient RADHA MONGE WATER TREATMENT PLANT OPERATOR [facility] LAB S80.12XD [id number] 07/18/2017 07:51:00 07/18/2017 11:48:00 DIS Emergency GABRIELLA MARTINEZ MD [facility] ER FALL X 1 DAY--LEFT SIDE PAIN [id number] 03/23/2017 11:55:00 03/23/2017 23:59:59 CLS Outpatient BRYANT RODRIGUEZ MD [facility] RAD ROUTINE SCREENING [id number] 10/27/2016 07:20:00 10/27/2016 13:20:00 DIS Outpatient FRED GLASS MD [facility] SDC NASAL BASAL CELL CARSINOMA [id number] 10/23/2016 13:32:00 10/23/2016 14:05:00 DIS Outpatient FRED GLASS MD [facility] PREOP NASAL BASAL CELL CARSANOMA [id number] 03/21/2016 09:50:00 03/21/2016 23:59:59 CLS Outpatient BRYANT RODRIGUEZ MD [facility] RAD ROUTINE SCREENING [id number] 03/17/2015 09:45:00 03/17/2015 23:59:59 CLS Outpatient BRYANT RODRIGUEZ MD [facility] RAD ROUTINE MAMMOGRAM SCREENING [id number] 03/12/2014 08:51:00 03/12/2014 23:59:59 CLS Outpatient BRYANT RODRIGUEZ MD [facility] RAD SCREENING [id number] 05/03/2013 12:41:00 05/03/2013 14:35:00 DIS Emergency QUINCY PACKER APRN [facility] ER FALL, BACK PAIN [id number] 03/07/2013 08:34:00 03/07/2013 23:59:59 CLS Outpatient BRYANT RODRIGUEZ MD [facility] RAD SCREENING, OSTEOPOROSIS [id number] 09/12/2012 08:15:00 09/12/2012 23:59:59 CLS Outpatient [id number] 07/16/2018 16:18:00 ACT Emergency BRIAN MASSEY MD [facility] ER LOW HEARTRATE [id number] 11/12/2017 08:00:00 Document Registration [id number] 06/27/2012 09:39:00 Document Registration [id number] 02/29/2012 08:49:00 Document Registration [id number] 02/16/2011 09:50:00 Document Registration [id number] 02/10/2010 09:04:00 Document Registration [id number] 07/15/2009 09:29:00 Document Registration [id number] 01/28/2009 11:32:00 Document Registration [id number] 01/28/2009 11:16:00 Document Registration
[2018-07-16 16:44] LABS: BASOPHILS % (AUTO) 0 % (0-10); EOSINOPHILS # (AUTO) 0.1 10^3/uL (0.0-0.3); EOSINOPHILS % (AUTO) 1 % (0-10); HEMATOCRIT 38 % (35-52); HEMOGLOBIN 12.5 G/DL (11.5-16.0); LYMPHOCYTES # (AUTO) 3.1 X 10^3 (1.0-4.0); LYMPHOCYTES % (AUTO) 38 % (12-44); MEAN CORPUSCULAR HEMOGLOBIN 29 PG (25-34); MEAN CORPUSCULAR HGB CONC 33 G/DL (32-36); MEAN CORPUSCULAR VOLUME 90 FL (80-99); MEAN PLATELET VOLUME 11.2 FL (7.4-10.4); MONOCYTES # (AUTO) 1.2 X 10^3 (0.0-1.0); MONOCYTES % (AUTO) 14 % (0-12); NEUTROPHILS # (AUTO) 3.8 X 10^3 (1.8-7.8); NEUTROPHILS % (AUTO) 47 % (42-75); PLATELET COUNT 281 10^3/uL (130-400); RED CELL DISTRIBUTION WIDTH 14.3 % (10.0-14.5); WHITE BLOOD COUNT 8.1 10^3/uL (4.3-11.0)
--- NOTE | 2018-07-16 16:57 | Diagnostic Imaging Report ---
CLINICAL INDICATION: Patient with low heart rate. Patient with complete heart block. EXAM: Portable chest x-ray, upright view. COMPARISONS: Chest x-ray dated 07/18/2017. FINDINGS: Lungs/pleura: Stable increased lung markings throughout both lungs representing chronic changes. Lungs are clear. There is no pneumothorax. There is no pleural effusion. Mediastinum: Unremarkable. Pulmonary vasculature: Unremarkable. Heart: Stable cardiomegaly Bones/extrathoracic soft tissue: There are small degenerative spurs involving the thoracic spine. IMPRESSION: 1: Stable chest x-ray exam with no interval radiographic evidence of acute cardiopulmonary process. 2: Stable cardiomegaly. Dictated by: Dictated on workstation # [id number]
[2018-07-16 16:59] LABS: ALANINE AMINOTRANSFERASE 26 U/L (0-55); ALBUMIN 4.5 GM/DL (3.2-4.5); ALKALINE PHOSPHATASE 79 U/L (40-136); BILIRUBIN,TOTAL 0.4 MG/DL (0.1-1.0); BUN/CREATININE RATIO 26; CALCIUM 10.2 MG/DL (8.5-10.1); CARBON DIOXIDE 24 MMOL/L (21-32); CHLORIDE 107 MMOL/L (98-107); CREATININE SERUM 0.92 MG/DL (0.60-1.30); GFR ESTIMATED 59; GLUCOSE 134 MG/DL (70-105); MAGNESIUM 2.7 MG/DL (1.8-2.4); POTASSIUM 3.6 MMOL/L (3.6-5.0); SODIUM 143 MMOL/L (135-145); TOTAL PROTEIN 7.5 GM/DL (6.4-8.2)
--- NOTE | 2018-07-16 17:35 | ED Cardiac General ---
History of Present Illness General Chief Complaint: Cardiac/General Problems Stated Complaint: LOW HEARTRATE Nursing Triage Note: PT SENT OVER FROM DR DESIR OFFICE FOR A COMPLETE HEART BLOCK. PT AMB TO RM 5. DENIES ANY CHEST PAIN OR SOA. Source: patient Exam Limitations: no limitations History of Present Illness Date Seen by Provider: Jul 16, 2018 Time Seen by Provider: 16:31 Initial Comments Here with report of concerns of complete heart block. Apparently she had been feeling tired and not well especially with activity. She follow-up with her heart Dr. who found her to be in complete heart block. She was sent here for evaluation. She is in complete heart block but is without chest pain, breathing problems, sweating or vomiting. She is a rather active individual and this is only limited her somewhat. Reports that she may need pacemaker. Timing/Duration: 2-3 days Severity: mild Location: other (no pain) Activities at Onset: none Prior CP/Workup: other (Holter monitor) NTG SL VICE PRESIDENT CONSULTING SERVICES: No ASA po VICE PRESIDENT CONSULTING SERVICES: Yes Associated Systoms: No Chest Pain, No Diaphoresis, No Fever/Chills, No Nausea/ Vomiting, No Shortness of Air, No Weakness Allergies and Home Medications Allergies Coded Allergies: morphine (Verified Allergy, Intermediate, CONFUSION, 08/02/17) Sulfa (Sulfonamide Antibiotics) (Verified Allergy, Mild, HIVES, 08/02/17) Home Medications Amlodipine Besylate 5 Mg Tablet, 5 MG PO DAILY, (Reported) Aspirin 81 Mg Tablet.dr, 81 MG PO DAILY, (Reported) Estradiol 1 Mg Tablet, 1 MG PO DAILY, (Reported) Losartan Potassium 50 Mg Tablet, 50 MG PO DAILY, (Reported) Omeprazole 20 Mg Capsule.dr, 20 MG PO DAILY Prescribed by: JUANA NÚÑEZ on 05/14/18 0906 Simvastatin 40 Mg Tablet, 40 MG PO DAILY, (Reported) Patient Home Medication List Home Medication List Reviewed: Yes Review of Systems Review of Systems Constitutional: see HPI; No chills, No fever EENTM: No Symptoms Reported Respiratory: No Symptoms Reported Cardiovascular: See HPI, Irregular Heart Rate; Denies Lightheadedness, Denies Palpitations Gastrointestinal: No Symptoms Reported Genitourinary: No Symptoms Reported Musculoskeletal: no symptoms reported Skin: no symptoms reported Psychiatric/Neurological: Denies Weakness; Other (fatigue) Endocrine: No Symptoms Reported All Other Systems Reviewed Negative Unless Noted: Yes Past Wxixkgo-Yzihax-Fhgykt Hx Past Med/Social Hx: Reviewed Nursing Past Med/Soc Hx Patient Social History Alcohol Use: Denies Use Recreational Drug Use: No Smoking Status: Never a Smoker 2nd Hand Smoke Exposure: No Recent Foreign Travel: No Contact w/Someone Who Travel: No Recent Infectious Disease Expo: No Recent Hopitalizations: No Immunizations Up To Date Tetanus Booster (TDap): More than 5yrs Date of Pneumonia Vaccine: Dec 31, 2012 Seasonal Allergies Seasonal Allergies: Yes Past Medical History Surgeries: Yes (NASAL LESION 2016) Appendectomy, Hysterectomy Respiratory: No Cardiac: Yes High Cholesterol, Hypertension Neurological: No Reproductive Disorders: No 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 Sexually Transmitted Disease: No HIV/AIDS: No Genitourinary: No Gastrointestinal: Yes Gastroesophageal Reflux Musculoskeletal: Yes (BACK PAIN AT TIMES) Arthritis, Chronic Back Pain Endocrine: No HEENT: No Loss of Vision: Bilateral Cancer: Yes Skin What Type of Treatment Did You: Surgical Intervention Psychosocial: No Integumentary: No Blood Disorders: No Adverse Reaction/Blood Tranf: No (N/A) Family Medical History Reviewed Nursing Family Hx Physical Exam Vital Signs Vital Signs - First Documented 07/16/18 16:18 Pulse 46 Resp 20 B/P (MAP) 190/76 (114) Pulse Ox 95 O2 Delivery Room Air Capillary Refill : Less Than 3 Seconds Height, Weight, BMI Height: 5'3.00" Weight: 121lbs. 0.0oz. 54.617757pi; 20.7 BMI Method:Stated General Appearance: No Apparent Distress, WD/WN HEENT: PERRL/EOMI, Pharynx Normal Neck: Non Tender, Supple Respiratory: Lungs Clear, Normal Breath Sounds Cardiovascular: No Murmur, Bradycardia, Other (occasionally irregular) Gastrointestinal: Non Tender, Soft Extremity: Normal Range of Motion, Non Tender Neurologic/Psychiatric: Alert, Oriented x3 Skin: Normal Color, Warm/Dry Progress/Results/Core Measures Results/Orders Lab Results Laboratory Tests Test 07/16/18 16:23 Range/Units White Blood Count 8.1 4.3-11.0 10^3/uL Red Blood Count 4.25 L 4.35-5.85 10^6/uL Hemoglobin 12.5 11.5-16.0 G/DL Hematocrit 38 35-52 % Mean Corpuscular Volume 90 80-99 FL Mean Corpuscular Hemoglobin 29 25-34 PG Mean Corpuscular Hemoglobin Concent 33 32-36 G/DL Red Cell Distribution Width 14.3 10.0-14.5 % Platelet Count 281 130-400 10^3/uL Mean Platelet Volume 11.2 H 7.4-10.4 FL Neutrophils (%) (Auto) 47 42-75 % Lymphocytes (%) (Auto) 38 12-44 % Monocytes (%) (Auto) 14 H 0-12 % Eosinophils (%) (Auto) 1 0-10 % Basophils (%) (Auto) 0 0-10 % Neutrophils # (Auto) 3.8 1.8-7.8 X 10^3 Lymphocytes # (Auto) 3.1 1.0-4.0 X 10^3 Monocytes # (Auto) 1.2 H 0.0-1.0 X 10^3 Eosinophils # (Auto) 0.1 0.0-0.3 10^3/uL Basophils # (Auto) 0.0 0.0-0.1 10^3/uL Prothrombin Time 13.0 12.2-14.7 SEC INR Comment 1.0 0.8-1.4 Activated Partial Thromboplast Time 31 24-35 SEC Sodium Level 143 135-145 MMOL/L Potassium Level 3.6 3.6-5.0 MMOL/L Chloride Level 107 98-107 MMOL/L Carbon Dioxide Level 24 21-32 MMOL/L Anion Gap 12 5-14 MMOL/L Blood Urea Nitrogen 24 H 7-18 MG/DL Creatinine 0.92 0.60-1.30 MG/DL Estimat Glomerular Filtration Rate 59 BUN/Creatinine Ratio 26 Glucose Level 134 H 70-105 MG/DL Calcium Level 10.2 H 8.5-10.1 MG/DL Corrected Calcium 9.8 8.5-10.1 MG/DL Magnesium Level 2.7 H 1.8-2.4 MG/DL Total Bilirubin 0.4 0.1-1.0 MG/DL Aspartate Amino Transf (AST/SGOT) 27 5-34 U/L Alanine Aminotransferase (ALT/SGPT) 26 0-55 U/L Alkaline Phosphatase 79 40-136 U/L Myoglobin 69.1 10.0-92.0 NG/ML Troponin I < 0.028 <0.028 NG/ML Total Protein 7.5 6.4-8.2 GM/DL Albumin 4.5 3.2-4.5 GM/DL My Orders Orders - BRIAN MASSEY MD Cbc With Automated Diff (07/16/18 16:31) Magnesium (07/16/18 16:31) Chest 1 View, Ap/Pa Only (07/16/18 16:31) Ekg Tracing (07/16/18 16:31) Cardiac Profile 1 (07/16/18 16:31) Comprehensive Metabolic Panel (07/16/18 16:) Myoglobin Serum (07/16/18 16:) Protime With Inr (07/16/18 16:) Partial Thromboplastin Time (07/16/18 16:) Monitor-Rhythm Ecg Trace Only (07/16/18 16:) Lipid Panel (07/17/18 06:00) Ed Iv/Invasive Line Start (07/16/18 16:31) Vital Signs/I&O 07/16/18 16:18 Pulse 46 Resp 20 B/P (MAP) 190/76 (114) Pulse Ox 95 O2 Delivery Room Air Blood Pressure Mean: 114 Progress Progress Note : Progress Note Seen and evaluated. IV, labs, chest x-ray and EKG ordered. Monitor patient. I discussed the case with Dr. Finn, and he would like the patient admitted and he will do pacemaker tomorrow. Is happy to consult. 1725: I discussed the case with Dr. MORLEY and he accepts patient for admission, inpatient status. Discussed with patient who agrees with plan. Departure Communication (Admissions) Time/Spoke to Admitting Phy: 16:35 Time/Spoke to Consulting Phy: 17:25 Impression Primary Impression: Third degree heart block Disposition: ADMITTED INPATIENT Condition: Stable Admissions Decision to Admit Reason: Admit from ER (General) Decision to Admit/Date: Jul 16, 2018 Time/Decision to Admit Time: 16:35 Departure-Patient Inst. Referrals: RAFA SANDHU MD (PCP/Family) Primary Care Physician BRIAN MASSEY MD Jul 16, 2018 17:35
[2018-07-16 18:30] VITALS: BP 160/72
--- NOTE | 2018-07-16 18:35 | NUR ---
NILDA SCHWARTZ admitted to room 430-1, with an admitting diagnosis of 3rd degree heart block, on 07/16/18 from ER via , accompanied by er staff.NILDA SCHWARTZ introduced to surroundings, call light, bed controls, phone, TV, temperature control, lights, meal times, smoking policy, visitor policy, side rail policy, bathrooms and showers. Patient Rights given to patient in the handbook. NILDA SCHWARTZ verbalizes understanding that [facility] is not responsible for the loss or damage to any personal effects or valuables that are kept in the patients possession during their hospitalization.
[2018-07-16] MEDS ORDERED: CATHETER FLUSH 10 ML SYR IV PRN (18:45)
[2018-07-16 18:52] VITALS: BP 160/72
[2018-07-16] MEDS ORDERED: NS IV 1000 ML 1,000 ML ONE (19:34)
[2018-07-16 23:20] VITALS: BP 138/56
[2018-07-17] VITALS (15 sets, daily range): BP systolic 125–186; BP diastolic 58–103
[2018-07-17 06:58] LABS: BASOPHILS % (AUTO) 0 % (0-10); EOSINOPHILS # (AUTO) 0.1 10^3/uL (0.0-0.3); EOSINOPHILS % (AUTO) 2 % (0-10); HEMATOCRIT 37 % (35-52); HEMOGLOBIN 11.8 G/DL (11.5-16.0); LYMPHOCYTES # (AUTO) 2.3 X 10^3 (1.0-4.0); LYMPHOCYTES % (AUTO) 41 % (12-44); MEAN CORPUSCULAR HEMOGLOBIN 29 PG (25-34); MEAN CORPUSCULAR HGB CONC 32 G/DL (32-36); MEAN CORPUSCULAR VOLUME 90 FL (80-99); MEAN PLATELET VOLUME 11.3 FL (7.4-10.4); MONOCYTES # (AUTO) 0.7 X 10^3 (0.0-1.0); MONOCYTES % (AUTO) 13 % (0-12); NEUTROPHILS # (AUTO) 2.5 X 10^3 (1.8-7.8); NEUTROPHILS % (AUTO) 44 % (42-75); PLATELET COUNT 239 10^3/uL (130-400); RED CELL DISTRIBUTION WIDTH 14.5 % (10.0-14.5); WHITE BLOOD COUNT 5.6 10^3/uL (4.3-11.0)
[2018-07-17 07:14] LABS: ALANINE AMINOTRANSFERASE 19 U/L (0-55); ALBUMIN 3.9 GM/DL (3.2-4.5); ALKALINE PHOSPHATASE 67 U/L (40-136); BILIRUBIN,TOTAL 0.3 MG/DL (0.1-1.0); BUN/CREATININE RATIO 26; CALCIUM 8.9 MG/DL (8.5-10.1); CARBON DIOXIDE 20 MMOL/L (21-32); CHLORIDE 114 MMOL/L (98-107); CHOLESTEROL 140 MG/DL (< 200); CREATININE SERUM 0.77 MG/DL (0.60-1.30); GFR ESTIMATED > 60; GLUCOSE 103 MG/DL (70-105); HDL CHOLESTEROL 58 MG/DL (40-60); POTASSIUM 4.1 MMOL/L (3.6-5.0); SODIUM 142 MMOL/L (135-145); TOTAL PROTEIN 6.2 GM/DL (6.4-8.2); TRIGLYCERIDES 100 MG/DL (<150); VLDL CHOLESTEROL 20 MG/DL (5-40)
[2018-07-17] MEDS ORDERED: MULT1TAB69 PO (08:36)
[2018-07-17] MEDS ORDERED: OMEP20CA12 PO (08:36)
[2018-07-17] MEDS ORDERED: VITA400C58 PO (08:38)
[2018-07-17] MEDS ORDERED: CALC-696 PO (08:38)
[2018-07-17] MEDS ORDERED: FLAX10004 PO (08:38)
[2018-07-17] MEDS ORDERED: CYCL10TA9 PO (08:46)
[2018-07-17] MEDS ORDERED: MELO15TA39 PO (08:46)
--- NOTE | 2018-07-17 08:46 | NUR ---
SPOKE WITH THE PATIENT ABOUT HER MEDICATIONS. SHE LISTED WHAT SHE IS TAKING. I VERIFIED WITH THE EXT MED HX WELL CALLING JUANCARLOS. JUANCARLOS FILLED: 07-15-18 MELOXICAM 15MG DAILY #30 (NOT PICKED UP YET, HAS NOT STARTED YET. STATES SHE WAS HAVING TROUBLE WITH HER BACK BUT WOULD NOT TAKE REGULARLY) 07-13-18 OMEPRAZOLE 20MG DAILY #90 07-01-18 FLEXERIL 10MG #30 1/2 TAB TID PRN (ONLY TAKES PRN WHEN BACK SPASMS BOTHERING HER) 06-28-18 LOSARTAN 50MG DAILY #20 05-08-18 AMLODIPINE 5MG DAILY #90 SHE IS PAST DUE FOR THE FOLLOWING HOWEVER STATES SHE IS STILL TAKING THEM: 09-09-17 SIMVASTATIN 40MG #90 05-23-17 ESTRADIOL 1MG DAILY #90 (SCRIPT ON HOLD BUT NEVER PICKED UP ON 03-21-18) OTC MEDS: MTV DAILY CITRACAL DAILY FLAXSEED OIL DAILY VITAMIN E DAILY ASPIRIN 81MG EVERY OTHER DAY
--- NOTE | 2018-07-17 09:16 | History & Physical-Hospitalist ---
History of Present Illness HPI/Chief Complaint Chief complaint: Fatigue with Bradycardia HPI: This is an 83yoWF clinic pt of Dr. Villeda who was sent over from Dr. Finn office due to severe bradycardia with 3rd degree AV block. Pt was found to have significant arrhythmia and pt was placed on bedrest and will have pacemaker placement today. Denied any significant problems except for dizziness and fatigue but denies any chest pain and or shortness of breath. I did review and reconcile and restarted all home medications. Source: patient Exam Limitations: no limitations Date Seen 07/17/18 Time Seen by a Provider: 10:00 Attending Physician Carrington Cruz MD PCP Kyle Villeda MD Referring Physician Date of Admission Jul 16, 2018 at 17:25 Home Medications & Allergies Home Medications Reviewed patient Home Medication Reconciliation performed by pharmacy medication reconciliations press technician and/or nursing. Patients Allergies have been reviewed. Allergies Allergies Coded Allergies morphine (Verified Allergy, Intermediate, CONFUSION, 08/02/17) Sulfa (Sulfonamide Antibiotics) (Verified Allergy, Mild, HIVES, 08/02/17) Past Ujulchl-Tsdeap-Uhebkh Hx Past Med/Social Hx: Reviewed Nursing Past Med/Soc Hx, Reviewed and Corrections made Patient Social History Marrital Status: single Employed/Student: retired Alcohol Use: Denies Use Recreational Drug Use: No Smoking Status: Never a Smoker 2nd Hand Smoke Exposure: No Recent Foreign Travel: No Contact w/other who traveled: No Recent Hopitalizations: No Recent Infectious Disease Expo: No Immunizations Up To Date Tetanus Booster (TDap): More than 5yrs Date of Pneumonia Vaccine: Dec 31, 2012 Seasonal Allergies Seasonal Allergies: Yes Past Medical History Surgeries: Appendectomy, Hysterectomy Cardiac: High Cholesterol, Hypertension Reproductive: No Sexually Transmitted Disease: No HIV/AIDS: No Hysterectomy Gastrointestinal: Gastroesophageal Reflux Musculoskeletal: Arthritis, Chronic Back Pain Loss of Vision: Bilateral Cancer: Skin What Type of Treatment Did You: Surgical Intervention History of Blood Disorders: No Adverse Reaction to Blood Marie: No (N/A) Family History Reviewed Nursing Family Hx FH: lung disease 19 FATHER (Father at age 83 of black lung disease) Kidney disease 19 MOTHER (Mother at age 43 ) Review of Systems Constitutional: see HPI, fever, malaise, weakness EENTM: no symptoms reported Respiratory: no symptoms reported Cardiovascular: syncope Gastrointestinal: no symptoms reported Genitourinary: no symptoms reported Musculoskeletal: no symptoms reported Skin: no symptoms reported Psychiatric/Neurological: No Symptoms Reported All Other Systems Reviewed Negative Unless Noted: Yes Physical Exam Physical Exam Vital Signs Vital Signs - First Documented 07/16/18 07/16/18 16:18 18:30 Temp 97.5 Pulse 46 Resp 20 B/P (MAP) 190/76 (114) Pulse Ox 95 O2 Delivery Room Air Capillary Refill : Less Than 3 Seconds Height, Weight, BMI Height: 5'3.00" Weight: 120lbs. 5.0oz. 54.484372vs; 21.3 BMI Method:Stated General Appearance: No Apparent Distress, WD/WN, Chronically ill Eyes: Right Eye Normal Inspection, Right Eye PERRL HEENT: PERRL/EOMI, Normal ENT Inspection, Pharynx Normal, Moist Mucous Membranes Neck: Full Range of Motion, Normal Inspection, Non Tender Respiratory: Chest Non Tender, Lungs Clear, Normal Breath Sounds, No Accessory Muscle Use, No Respiratory Distress Cardiovascular: No Edema, No Gallop, No JVD, No Murmur, Normal Peripheral Pulses, Bradycardia Gastrointestinal: Normal Bowel Sounds, No Organomegaly, No Pulsatile Mass, Non Tender, Soft Back: Normal Inspection, No CVA Tenderness, No Vertebral Tenderness Extremity: Normal Capillary Refill, Normal Inspection, Normal Range of Motion, Non Tender, No Calf Tenderness, No Pedal Edema Neurologic/Psychiatric: Alert, Oriented x3, No Motor/Sensory Deficits, Normal Mood/Affect Skin: Normal Color, Warm/Dry Lymphatic: No Adenopathy Results Results/Procedures Labs Laboratory Tests 07/16/18 16:23 07/17/18 06:40 Patient resulted labs reviewed. Assessment/Plan Admission Diagnosis Assessment: Severe bradycardia due to 3rd degree AV block in need of pacemaker HLP Estrogen maintenance Plan: Pacemaker Monitor closely Admission Status: Inpatient Order (span 2 midnights) Reason for Inpatient Admission: [facility]SS needs inpatient and pacemaker Diagnosis/Problems Diagnosis/Problems (1) Third degree heart block Status: Acute (2) Bradycardia Status: Acute (3) Dizziness Status: Acute (4) Fatigue Status: Acute Qualifiers: Fatigue type: unspecified Qualified Codes: R53.83 - Other fatigue (5) Hyperlipidemia Status: Chronic Qualifiers: Hyperlipidemia type: mixed hyperlipidemia Qualified Codes: E78.2 - Mixed hyperlipidemia (6) Hx estrogen therapy Status: Chronic Clinical Quality Measures AMI/AHF: ASA po Prior to arrival: Yes DVT/VTE Risk/Contraindication: Risk Factor Score Per Nursin RFS Level Per Nursing on Admit: 3=High KONRAD ELLSWORTH DO Jul 17, 2018 09:16
[2018-07-17] MEDS: NS IV 1000 ML 1,000 ML IV SCH ×3 (10:32→21:01)
--- NOTE | 2018-07-17 10:35 | Consultation-Cardiology ---
HPI-Cardiology Cardiology Consultation: Date of Consultation 07/17/18 Date of Admission Attending Physician Carrington Cruz MD Admitting Physician Kyle Villeda MD Consulting Physician Dionicio FINN MD HPI: Time Seen by a Provider: 09:00 Chief Complaint: Fatigue. This is a very pleasant 83-year-old lady who is a patient of Dr. Elizondo and Dr. Villeda. She has history of hypertension and hyperlipidemia. Otherwise in good general health. She presented in the office yesterday with complains of Fatigue. She has previous history of second-degree heart block, she insisted that she was totally asymptomatic and therefore did not want a permanent pacemaker. However she presented to Dr. Villeda's office with significant bradycardia. Review of Systems-Cardiology Review of Systems Constitutional: As described under HPI; No As described under HPI, No no symptoms reported, No chills, No fever, No lightheadedness Eyes: No As described under HPI, No no symptoms reported, No blindness, No blurred vision, No contact lenses, No drainage, No decreased acuity, No foreign body sensation, No pain, No vision change Ears/Nose/Throat: No As described under HPI, No no symptoms reported, No chronic hearing loss, No ear discharge, No ear pain, No nasal drainage, No ulcerations Respiratory: No no symptoms reported; As described under HPI; No As described under HPI, No cough, No orthopnea, No shortness of breath, No SOB with excertion Cardiovascular: No no symptoms reported; As described under HPI; No As described under HPI, No chest pain, No edema, No irregular heart rate, No lightheadedness, No palpitations Gastrointestinal: No no symptoms reported, No As described under HPI, No abdomen distended, No abdominal pain, No blood streaked bowels, No constipation , No diarrhea, No nausea, No vomiting, No stool coloration changes Genitourinary: No As described under HPI, No burning, No dysuria, No discharge , No frequency, No flank pain, No hematuria, No urgency : Yes : No Skin: No rash, No skin related problems, No ulcerations Psychiatric/Neurological: No anxiety, No depression, No seizure, No focal weakness, No syncope Hematologic: No bleeding abnormalities All Other Systems Reviewed Negative Unless Noted: Yes [id number] Hx Patient Social History Alcohol Use: Denies Use Recreational Drug Use: No Smoking Status: Never a Smoker 2nd Hand Smoke Exposure: No Recent Foreign Travel: No Recent Infectious Disease Expo: No Hospitalization with Isolation: Denies Immunizations Up To Date Tetanus Booster (TDap): More than 5yrs Date of Pneumonia Vaccine: Dec 31, 2012 Past Medical History PMH As described under Assessment. Family Medical History Family History: FH: lung disease 19 FATHER (Father at age 83 of black lung disease) Kidney disease 19 MOTHER (Mother at age 43 ) Allergies and Home Medications Allergies Coded Allergies: morphine (Verified Allergy, Intermediate, CONFUSION, 08/02/17) Sulfa (Sulfonamide Antibiotics) (Verified Allergy, Mild, HIVES, 08/02/17) Home Medications Amlodipine Besylate 5 Mg Tablet, 5 MG PO DAILY, (Reported) Aspirin 81 Mg Tablet.dr, 81 MG PO Q48H, (Reported) Calcium Citrate/Vitamin D3 1 Each Tablet, 1 TAB PO DAILY, (Reported) Cyclobenzaprine HCl 10 Mg Tablet, 5 MG PO TID PRN for MUSCLE SPASMS, (Reported) Estradiol 1 Mg Tablet, 1 MG PO DAILY, (Reported) LAST FILLED #90 18 Flaxseed Oil 1,000 Mg Capsule, 1,000 MG PO DAILY, (Reported) Losartan Potassium 50 Mg Tablet, 50 MG PO DAILY, (Reported) Meloxicam 15 Mg Tablet, 15 MG PO DAILY PRN for BACK PAIN, (Reported) NOT PICKED UP OR STARTED YET Multivitamin 1 Each Tablet, 1 TAB PO DAILY, (Reported) Omeprazole 20 Mg Capsule.dr, 20 MG PO DAILY, (Reported) Simvastatin 40 Mg Tablet, 40 MG PO DAILY, (Reported) LAST FILLED #90 18 Vitamin E Mixed 400 Unit Capsule, 400 UNIT PO DAILY, (Reported) Patient Home Medication List Home Medication List Reviewed: Yes Physical Exam-Cardiology Physical Exam Vital Signs/I&O 07/16/18 07/17/18 07/17/18 07/17/18 23:20 03:25 03:52 07:00 Temp 98.1 97.3 Pulse 42 41 36 40 Resp 14 16 B/P (MAP) 138/56 (83) 174/74 (107) Pulse Ox 98 95 O2 Delivery Room Air Room Air 07/17/18 07/17/18 08:00 09:25 Temp 98.5 Pulse 33 Resp 16 B/P (MAP) 132/58 (82) Pulse Ox 98 98 O2 Delivery Room Air Room Air 07/16/18 23:59 Intake Total 320 ml Output Total 100 ml Balance 220 ml Capillary Refill : Less Than 3 Seconds Constitutional: appears stated age, AAO x 3; No apparent distress; well- developed, well-nourished HEENT: PERRL; No normal ENT inspection, No TMs normal, No pharynx normal, No scleral icterus (R), No scleral icterus (L), No pale conjunctivae (R), No pale conjunctivae (L), No photophobia, No TM abnormal (R), No TM abnormal (L), No pharyngeal erythema, No tonsillar exudate, No other, No discharge, No EOMI; hearing is well preserved; No hard of hearing; oral hygience is good; No ulceration, No xanthelasmas are seen Neck: No non-tender, No full range of motion, No supple, No normal inspection, No carotid bruit, No limited range of motion, No lymphadenopathy (R), No lymphadenopathy (L), No tender lateral, No tender midline, No thyromegaly, No other; carotid pulses are 2 + bilaterally; No with good upstrokes Respiratory: No accessory muscle use, No respiratory distress, No chest tender , No chest expansion is symmetric; chest is bilaterally symmetric; No lungs clear to percussion; lungs clear to auscultation; No crackles, No rhonchi, No rales, No stridor, No wheezing, No pleural rub, No other Cardiovascular: regular rate-rhythm; No irregularly irregular, No extra beats, No parasternal heave is noted, No JVD, No edema; bradycardia; No tachycardia, No point of maximal impulse, No cardiac thrills are palpable; S1 and S2; No gallop/S3, No gallop/S4, No diastolic murmur, No systolic murmur, No friction rub, No click, No other Gastrointestinal: No tender, No soft, No round, No distended, No pulsatile mass , No organomegaly, No guarding, No rebound, No tenderness, No hernia, No mass, No audible bowel sounds, No abnormal bowel sounds, No abdominal bruits, No spleenomegaly, No other Rectal: deferred Extremities: No normal range of motion, No non-tender, No normal inspection, No pedal edema, No calf tenderness, No normal capillary refill, No pelvis stable , No calf tenderness, No inflammation, No pedal edema, No slow capillary refill , No swelling, No other, No abrasion, No clubbing, No cyanosis, No ecchymosis, No laceration, No no lower extremity edema bilateral, No significant edema, No tenderness, No wound Neurologic/Psychiatric: no motor/sensory deficits, alert, normal mood/affect, oriented x 3, power is 5/5 both on sides Skin: No normal color, No warm/dry, No cyanosis, No cool, No diaphoresis, No damp, No ecchymosis, No jaundice, No mottled, No pallor, No rash, No tattoos/ piercings, No ulcerations, No rash on exposed areas, No ulcerations on exposed areas, No other Data Review Labs Laboratory Tests 07/16/18 16:23: White Blood Count 8.1, Red Blood Count 4.25L, Hemoglobin 12.5, Hematocrit 38, Mean Corpuscular Volume 90, Mean Corpuscular Hemoglobin 29, Mean Corpuscular Hemoglobin Concent 33, Red Cell Distribution Width 14.3, Platelet Count 281, Mean Platelet Volume 11.2H, Neutrophils (%) (Auto) 47, Lymphocytes (%) (Auto) 38 , Monocytes (%) (Auto) 14H, Eosinophils (%) (Auto) 1, Basophils (%) (Auto) 0, Neutrophils # (Auto) 3.8, Lymphocytes # (Auto) 3.1, Monocytes # (Auto) 1.2H, Eosinophils # (Auto) 0.1, Basophils # (Auto) 0.0, Prothrombin Time 13.0, INR Comment 1.0, Activated Partial Thromboplast Time 31, Sodium Level 143, Potassium Level 3.6, Chloride Level 107, Carbon Dioxide Level 24, Anion Gap 12, Blood Urea Nitrogen 24H, Creatinine 0.92, Estimat Glomerular Filtration Rate 59 , BUN/Creatinine Ratio 26, Glucose Level 134H, Calcium Level 10.2H, Corrected Calcium 9.8, Magnesium Level 2.7H, Total Bilirubin 0.4, Aspartate Amino Transf ( AST/SGOT) 27, Alanine Aminotransferase (ALT/SGPT) 26, Alkaline Phosphatase 79, Myoglobin 69.1, Troponin I < 0.028, Total Protein 7.5, Albumin 4.5 07/17/18 06:40: White Blood Count 5.6, Red Blood Count 4.08L, Hemoglobin 11.8, Hematocrit 37, Mean Corpuscular Volume 90, Mean Corpuscular Hemoglobin 29, Mean Corpuscular Hemoglobin Concent 32, Red Cell Distribution Width 14.5, Platelet Count 239, Mean Platelet Volume 11.3H, Neutrophils (%) (Auto) 44, Lymphocytes (%) (Auto) 41 , Monocytes (%) (Auto) 13H, Eosinophils (%) (Auto) 2, Basophils (%) (Auto) 0, Neutrophils # (Auto) 2.5, Lymphocytes # (Auto) 2.3, Monocytes # (Auto) 0.7, Eosinophils # (Auto) 0.1, Basophils # (Auto) 0.0, Sodium Level 142, Potassium Level 4.1, Chloride Level 114H, Carbon Dioxide Level 20L, Anion Gap 8, Blood Urea Nitrogen 20H, Creatinine 0.77, Estimat Glomerular Filtration Rate > 60, BUN /Creatinine Ratio 26, Glucose Level 103, Calcium Level 8.9, Corrected Calcium 9.0, Total Bilirubin 0.3, Aspartate Amino Transf (AST/SGOT) 20, Alanine Aminotransferase (ALT/SGPT) 19, Alkaline Phosphatase 67, Total Protein 6.2L, Albumin 3.9, Triglycerides Level 100, Cholesterol Level 140, LDL Cholesterol Direct 60, VLDL Cholesterol 20, HDL Cholesterol 58 ECG Impression ECG Initial ECG Impression: 3rd Degree AV Block A/P-Cardiology Assessment/Admission Diagnosis Complete heart block, Hypertension, Hyperlipidemia Plan 1. Complete heart block: Heart rate 34 bpm. c/o fatigue. Spoke about dual chamber permanent pacemaker. Normal blood pressure. Echocardiogram. Dual- chamber permanent pacemaker later today. Informed consent taken. All risks and complication explained in detail. Echocardiogram done on 08/23/2017 shows mild LVH with normal systolic function. EF 55-65 percent. Mild diastolic dysfunction. PA pressure is 46 mmHg. Mild mitral regurgitation, [id number] aortic regurgitation, [id number] tricuspid regurgitation. 2. Post nasal surgery, no cardiac issues. 3. Cardiac murmur: Likely mild aortic sclerosis. Echocardiogram shows mild to moderate AR, mild to moderate TR. Mild MR. No . 4. Hypertension: Continue outpatient medications. 5. Hyperlipidemia: Continue statin therapy. Thank you for your consultation. Please call me if you have any questions. Fern Finn MD, FACP, FACC, FSCAI, FHRS, CCDS Interventional Cardiology Cardiac Electrophysiology Vascular Medicine and Endovascular Interventions Clinical Quality Measures AMI/AHF: ASA po Prior to arrival: Yes DVT/VTE Risk/Contraindication: Risk Factor Score Per Nursin RFS Level Per Nursing on Admit: 3=High Dionicio FINN MD Jul 17, 2018 10:35
[2018-07-17] MEDS ORDERED: BACITRACIN INJECTION 50,000 UNIT, SODIUM CHLORIDE 0.9% IRRIGATIO 500 ML IR ONE ×2 (12:00)
[2018-07-17] MEDS ORDERED: CYCLOBENZAPRINE 10 MG (FLEXERIL) TAB PO PRN (12:00)
[2018-07-17] MEDS ORDERED: LIDOCAINE 1% INJ 20 ML 20 ML VIAL ONE (14:17)
[2018-07-17] MEDS ORDERED: HEParin 1000 UNIT/ML (10ML VIAL) FOR BOLUS ONE (14:17)
[2018-07-17] MEDS ORDERED: NORMAL SALINE 250 ML ONE (14:17)
[2018-07-17] MEDS ORDERED: NS IV 1000 ML 1,000 ML ONE (14:17)
[2018-07-17] MEDS ORDERED: VANCOMYCIN 1000 MG/VIAL ONE (14:17)
[2018-07-17] MEDS ORDERED: MIDAZOLAM 5 MG/5 ML (VERSED) VIAL ONE (15:36)
[2018-07-17] MEDS ORDERED: fentaNYL INJECTION 100 MCG/2 ML AMP ONE (15:36)
--- NOTE | 2018-07-17 16:24 | NUR ---
TO SURGERY FOR PACEMAKER INSERTION
[2018-07-17] MEDS ORDERED: ATROPINE INJECTION 1 MG/10 ML SYR (ABBOTT) ONE (16:52)
[2018-07-17] MEDS ORDERED: MIDAZOLAM 2 MG/2 ML (VERSED) VIAL ONE (17:27)
[2018-07-17] MEDS ORDERED: NEO/POLY/BAC (NEOSPORIN) OINT 15 GM TUBE ONE (17:53)
--- NOTE | 2018-07-17 18:03 | Cardiac Procedure Note-CS/ASA ---
Pre-Procedure Note Pre-Op Procedure Note H&P Reviewed The H&P was reviewed, patient examined and no changes noted. Date H&P Reviewed: Jul 17, 2018 Time H&P Reviewed: 16:20 Conscious Sedation Pre-Proced Time 16:20 ASA Score 3 For ASA 3 and 4: Consider anesthesia and medical clearance. Also, for patients with a history of failed moderate sedation consider anesthesia. Airway Lungs Heart ASA score ASA 1: a normal healthy patient ASA 2: a patient with a mild systemic disease (mid diabetes, controlled hypertension, obesity ASA 3: a patient with a severe systemic disease that limits activity (angina , COPD, prior Myocardial infarction) ASA 4: a patient with an incapacitating disease that is a constant threat to life (CHF, renal failure) ASA 5: a moribund patient not expected to survive 24 hrs. (ruptured aneurysm) ASA 6: a declared brain- patient whose organs are being harvested. For emergent operations, add the letter E after the classification Mallampati Classification Grade 1 Sedation Plan Analgesia, Amnesia, Plan communicated to team members, Discussed options with patient/fam, Discussed risks with patient/fam The patient is an appropriate candidate to undergo the planned procedure, sedation, and anesthesia. The patient immediately re-assessed prior to indication. Dionicio MACKEY MD Jul 17, 2018 18:03
[2018-07-17] MEDS ORDERED: NS IV 1000 ML 1,000 ML IV SCH (18:09)
--- NOTE | 2018-07-17 18:09 | Permanent Pacemaker Implant ---
Dual Chamber Pacemaker Implant PROCEDURE PHYSICIAN: Fern Finn MD DUAL CHAMBER PACEMAKER IMPLANTATION: DATE OF PROCEDURE: 07/17/18 REFERRING PHYSICIAN: Dr. Villeda ATTENDING PHYSICIAN: Dr. Finn INDICATION: High degree AV block. PREOPERATIVE DIAGNOSIS: High degree AV block. POSTOPERATIVE DIAGNOSIS: Successful dual-chamber permanent pacemaker implantation. HISTORY: This is a 83-year-old lady who presented with significant fatigue and high degree AV block. Dual-chamber permanent pacemaker was recommended. PROCEDURE PERFORMED: 1. Dual-chamber permanent pacemaker implantation. 2. Fluoroscopy. 3. Central venous access. 4. Left upper extremity venogram. ANESTHESIA: Local anesthesia, conscious sedation. COMPLICATIONS: None. ESTIMATED BLOOD LOSS:20 mL. SPECIMENS: None. ORAL ANTICOAGULATION: None. FLUOROSCOPY TIME: 8.06 minutes. FLUOROSCOPY DOSE: 23 mgy. CONTRAST DOSE: 20 ml. PROCEDURE DETAILS: The patient is a 83 female and after all of the patients questions were answered, the patient was brought to the EP Lab. The patient's left chest was prepped and draped in sterile fashion. A 2 inch horizontal incision was made 1 cm below the clavicle and dissection carried down to the pectoralis fascia. The patient went into complete heart block with no ventricular escape rhythm. Therefore she had to be placed transcutaneously. She maintained a systolic blood pressure over 110 mmHg throughout. Left upper extremity venogram was done to identify the axillary vein. Using the modified Seldinger technique and under fluoroscopy guidance, the anterior aspect of the left axillary vein was accessed 2 times. The J wires were secured to the drapes with a mosquito clamp. A 7-Mozambican sheath was introduced over one of the J-wires. The RV lead was then inserted. The RV lead was directed across the tricuspid valve to the apical septal portion of the right ventricle. The position was checked in ANNELISE and ROBERTS views. The screw was deployed and the lead connected to the object oriented programmer. Close sensing and pacing thresholds were obtained. Diaphragmatic pacing was ruled out. The lead was secured with 2-0 silk ties to the underlying muscle and fascia. Next, a 7-Mozambican sheath was introduced through the remaining J-wire. An atrial lead was then introduced and guided to the level of the right appendage. The screw was deployed and the lead was connected to the interrogator. Good sensing and pacing thresholds were obtained. Diaphragmatic pacing was ruled out. The leads were secured with 2-0 silk ties to the underlying muscle and fascia. The leads were connected to the device in a hermetic fashion. The device and leads were placed in the pocket. Aggressive irrigation with saline solution was done. The device was secured to the underlying muscle and fascia with a 2-0 silk tie. interrogation of the device revealed good integrity of all the leads and good connections. The wound was then closed using 2 layers. The first layer was interrupted 2-0 absorbable Vicryl suture. The last layer was a single subcuticular layer with 4- 0 Vicryl suture. Half inch Steri-Strips and a small dressing were then applied to the wound. The patient tolerated the procedure well and was returned to the recovery room in stable condition with stable vital signs. DEVICE INFORMATION: [employer] IPG [id number] Estrellita MARIE, serial number [id number], model number W3 DR 01. RA LEAD: Model number [id number], length 52, serial number [id number]. RV LEAD: Model number [id number], length 58, serial number [id number]. PER-OPERATIVE DEVICE INTERROGATION: Right atrial capture 0.8 V at 0.5 ms. Impedance 555, P-wave 3 mV. RV capture 0.3 V is 0.5 ms. Impedance 688 ohms. R-wave 7.1 mV. PLAN: The patient transferred to the ICU. We will continue with two more doses of IV antibiotics. We will check a chest x-ray and interrogate the device in the morning. The patient will continue on oral antibiotics for 3 days. Fern Finn MD, RS, CCDS Cardiac Electrophysiology Dionicio FINN MD Jul 17, 2018 18:09
[2018-07-17] MEDS ORDERED: PATIENT MAY USE OWN MEDS, ALL PO SCH (18:15)
--- NOTE | 2018-07-17 18:27 | NUR ---
PATIENT GOING TO ICU AFTER PACEMAKER INSERTION, REPORT GIVEN TO ICU NURSE
--- NOTE | 2018-07-17 18:40 | Diagnostic Imaging Report ---
INDICATION: Post cardiac pacemaker placement. FINDINGS: A frontal view of the chest is compared to an exam from July 16. There has been interval placement of a left subclavian cardiac pacemaker. No pneumothorax or pleural effusion is present. Pulmonary congestion has developed. Central pulmonary vessels are prominent. A small spiculated density in the right upper lung was not seen yesterday. This is probably normal. Recommended additional followup film to document clearance of this. IMPRESSION: 1. Cardiac pacemaker placement with development of mild pulmonary congestion. 2. Small spiculated nodule is present in the right upper lung, which was not seen previously. Recommend additional followup chest radiograph document clearance of this. Dictated by: Dictated on workstation # [id number]
--- NOTE | 2018-07-17 19:38 | NUR ---
1837 Patient arrived on unit via cart with Power Machine Operator Staff. VSS. Pacemaker site looks WNL. No hematoma. Patient complains of NO pain. Lung sounds clear. Heart Tones normal. Pedal pulses palable and bowel sounds active.
[2018-07-17] MEDS ORDERED: VANCOMYCIN INJECTION 1,000 MG in NS (IVPB) 250 ML IV SCH (21:00)
--- NOTE | 2018-07-17 21:10 | NUR ---
Patient blood pressure noted to be 180s/80s. Dr. Finn notified and order received for amlodipine 5mg x 1. Will continue to monitor.
[2018-07-17] MEDS ORDERED: amLODIPine 5 MG (NORVASC) TAB PO ONE (21:15)
[2018-07-18 00:27] VITALS: BP 175/86
[2018-07-18] MEDS ORDERED: VANCOMYCIN 750 MG/NS 250 ML IVPB IV SCH ×2 (02:00)
[2018-07-18 03:52] LABS: HEMOGLOBIN 12.5 G/DL (11.5-16.0); MEAN PLATELET VOLUME 11.3 FL (7.4-10.4); WHITE BLOOD COUNT 8.6 10^3/uL (4.3-11.0)
[2018-07-18 04:18] LABS: ALANINE AMINOTRANSFERASE 17 U/L (0-55); ALBUMIN 3.9 GM/DL (3.2-4.5); ALKALINE PHOSPHATASE 76 U/L (40-136); BILIRUBIN,TOTAL 0.6 MG/DL (0.1-1.0); BUN/CREATININE RATIO 15; CALCIUM 8.8 MG/DL (8.5-10.1); CARBON DIOXIDE 20 MMOL/L (21-32); CHLORIDE 109 MMOL/L (98-107); CREATININE SERUM 0.67 MG/DL (0.60-1.30); GFR ESTIMATED > 60; GLUCOSE 111 MG/DL (70-105); POTASSIUM 3.4 MMOL/L (3.6-5.0); SODIUM 139 MMOL/L (135-145); TOTAL PROTEIN 6.2 GM/DL (6.4-8.2)
[2018-07-18 04:24] VITALS: BP 155/76
[2018-07-18] MEDS: NS IV 1000 ML 1,000 ML IV SCH (07:16)
[2018-07-18 08:00] VITALS: BP 154/68
[2018-07-18] MEDS ORDERED: PANTOPRAZOLE 20 MG TABLET (PROTONIX) PO SCH (09:00)
[2018-07-18] MEDS ORDERED: CEPH-507 PO (09:58)
[2018-07-18] MEDS ORDERED: LOSA50TA63 PO (10:00)
--- NOTE | 2018-07-18 10:02 | Discharge Summary-Hospitalist ---
Diagnosis/Chief Complaint Date of Admission Jul 16, 2018 at 17:25 Date of Discharge Discharge Date: Jul 18, 2018 Admission Diagnosis Assessment: Severe bradycardia due to 3rd degree AV block in need of pacemaker HLP Estrogen maintenance Plan: Pacemaker Monitor closely Discharge Diagnosis (1) Status cardiac pacemaker Status: Acute (2) Third degree heart block Status: Resolved (3) Bradycardia Status: Resolved (4) Dizziness Status: Acute (5) Fatigue Status: Acute (6) Hyperlipidemia Status: Chronic (7) Hx estrogen therapy Status: Chronic Discharge Summary Discharge Physical Exam Allergies: Coded Allergies: morphine (Verified Allergy, Intermediate, CONFUSION, 08/02/17) Sulfa (Sulfonamide Antibiotics) (Verified Allergy, Mild, HIVES, 08/02/17) Vitals & I&Os Vital Signs Date Time Temp Pulse Resp B/P (MAP) Pulse Ox O2 Delivery O2 Flow Rate FiO2 07/18/18 08:00 98.0 78 18 154/68 (96) 98 Room Air General Appearance: No Apparent Distress, WD/WN Neurologic/Psychiatric: Alert, Oriented x3, No Motor/Sensory Deficits, Normal Mood/Affect Hospital Course Was the Problem List Reviewed?: Yes Hospital course: Patient had an uneventful hospital course after admitted due to severe bradycardia and third-degree AV block. Patient had pacemaker placed in an uncomplicated manner by and was able to be discharged on Keflex per protocol sling on her left arm Labs (last 24 hrs) Laboratory Tests 07/18/18 03:40: White Blood Count 8.6, Red Blood Count 4.29L, Hemoglobin 12.5, Hematocrit 38, Mean Corpuscular Volume 90, Mean Corpuscular Hemoglobin 29, Mean Corpuscular Hemoglobin Concent 33, Red Cell Distribution Width 14.0, Platelet Count 201, Mean Platelet Volume 11.3H, Sodium Level 139, Potassium Level 3.4L, Chloride Level 109H, Carbon Dioxide Level 20L, Anion Gap 10, Blood Urea Nitrogen 10, Creatinine 0.67, Estimat Glomerular Filtration Rate > 60, BUN/Creatinine Ratio 15, Glucose Level 111H, Calcium Level 8.8, Corrected Calcium 8.9, Total Bilirubin 0.6, Aspartate Amino Transf (AST/SGOT) 22, Alanine Aminotransferase ( ALT/SGPT) 17, Alkaline Phosphatase 76, Total Protein 6.2L, Albumin 3.9 Patient resulted labs reviewed. Pending Labs Laboratory Tests 07/18/18 03:40: White Blood Count 8.6, Red Blood Count 4.29, Hemoglobin 12.5, Hematocrit 38, Mean Corpuscular Volume 90, Mean Corpuscular Hemoglobin 29, Mean Corpuscular Hemoglobin Concent 33, Red Cell Distribution Width 14.0, Platelet Count 201, Mean Platelet Volume 11.3, Sodium Level 139, Potassium Level 3.4, Chloride Level 109, Carbon Dioxide Level 20, Anion Gap 10, Blood Urea Nitrogen 10, Creatinine 0.67, Estimat Glomerular Filtration Rate > 60, BUN/Creatinine Ratio 15, Glucose Level 111, Calcium Level 8.8, Corrected Calcium 8.9, Total Bilirubin 0.6, Aspartate Amino Transf (AST/SGOT) 22, Alanine Aminotransferase ( ALT/SGPT) 17, Alkaline Phosphatase 76, Total Protein 6.2, Albumin 3.9 Discussion & Recommendations Discharge Planning: <30 minutes discharge planning Discharge Home Medications: Active Scripts Active Losartan Potassium 50 Mg Tablet 50 Mg PO DAILY Keflex (Cephalexin) 500 Mg Capsule 500 Mg PO TID 3 Days Reported Meloxicam 15 Mg Tablet 15 Mg PO DAILY PRN NOT PICKED UP OR STARTED YET Cyclobenzaprine HCl 10 Mg Tablet 5 Mg PO TID PRN Vitamin E (Vitamin E Mixed) 400 Unit Capsule 400 Unit PO DAILY Flaxseed Oil 1,000 Mg Capsule 1,000 Mg PO DAILY Citracal + D Maximum Caplet (Calcium Citrate/Vitamin D3) 1 Each Tablet 1 Tab PO DAILY Multivitamins (Multivitamin) 1 Each Tablet 1 Tab PO DAILY Omeprazole 20 Mg Capsule. 20 Mg PO DAILY Amlodipine Besylate 5 Mg Tablet 5 Mg PO DAILY Simvastatin 40 Mg Tablet 40 Mg PO DAILY LAST FILLED #90 09-09-17 Estradiol Tablet (Estradiol) 1 Mg Tablet 1 Mg PO DAILY LAST FILLED #90 05-23-17 Aspir 81 (Aspirin) 81 Mg Tablet.dr 81 Mg PO Q48H Instructions to patient/family Please see electronic discharge instructions given to patient. Clinical Quality Measures AMI/AHF: ASA po Prior to arrival: Yes DVT/VTE Risk/Contraindication: Risk Factor Score Per Nursin RFS Level Per Nursing on Admit: 3=High Problem Qualifiers (1) Fatigue: Fatigue type: unspecified Qualified Codes: R53.83 - Other fatigue (2) Hyperlipidemia: Hyperlipidemia type: mixed hyperlipidemia Qualified Codes: E78.2 - Mixed hyperlipidemia KONRAD ELLSWORTH DO Jul 18, 2018 10:02
--- NOTE | 2018-07-18 11:32 | Cardiology Progress Note ---
Cardiology SOAP Progress Note Subjective: No cardiac complaints. Objective: I&O/Vital Signs 07/18/18 07/18/18 07/18/18 07/18/18 00:19 00:27 01:00 04:24 Temp 98.0 98.7 Pulse 85 75 82 Resp 26 20 B/P (MAP) 175/86 (115) 155/76 (102) Pulse Ox 97 95 O2 Delivery Room Air Room Air 07/18/18 07/18/18 07/18/18 07:00 07:00 08:00 Temp 98.0 Pulse 78 78 Resp 18 B/P (MAP) 154/68 (96) Pulse Ox 98 O2 Delivery Room Air Room Air 07/17/18 23:59 Intake Total 690 ml Balance 690 ml Weight (Pounds): 120 Weight (Ounces): 5.0 Weight (Calculated Kilograms): 54.262128 Constitutional: appears stated age, AAO x 3; No apparent distress; well- developed, well-nourished Respiratory: No accessory muscle use, No respiratory distress, No chest tender , No chest expansion is symmetric; chest is bilaterally symmetric; No lungs clear to percussion; lungs clear to auscultation; No crackles, No rhonchi, No rales, No stridor, No wheezing, No pleural rub, No other Cardiovascular: regular rate-rhythm; No irregularly irregular, No extra beats, No parasternal heave is noted, No JVD, No edema, No tachycardia, No point of maximal impulse, No cardiac thrills are palpable; S1 and S2; No gallop/S3, No gallop/S4, No diastolic murmur, No systolic murmur, No friction rub, No click, No other Gastrointestional: No tender, No soft, No round, No distended, No pulsatile mass, No organomegaly, No guarding, No rebound, No tenderness, No hernia, No mass, No audible bowel sounds, No abnormal bowel sounds, No abdominal bruits, No spleenomegaly, No other Extremities: No normal range of motion, No non-tender, No normal inspection, No pedal edema, No calf tenderness, No normal capillary refill, No pelvis stable , No calf tenderness, No inflammation, No pedal edema, No slow capillary refill , No swelling, No other, No abrasion, No clubbing, No cyanosis, No ecchymosis, No laceration, No no lower extremity edema bilateral, No significant edema, No tenderness, No wound Neurologic/Psychiatric: no motor/sensory deficits, alert, normal mood/affect, oriented x 3, power is 5/5 both on sides Skin: No normal color, No warm/dry, No cyanosis, No cool, No diaphoresis, No damp, No ecchymosis, No jaundice, No mottled, No pallor, No rash, No tattoos/ piercings, No ulcerations, No rash on exposed areas, No ulcerations on exposed areas, No other Results/Procedures: Labs Laboratory Tests 07/18/18 03:40: White Blood Count 8.6, Red Blood Count 4.29L, Hemoglobin 12.5, Hematocrit 38, Mean Corpuscular Volume 90, Mean Corpuscular Hemoglobin 29, Mean Corpuscular Hemoglobin Concent 33, Red Cell Distribution Width 14.0, Platelet Count 201, Mean Platelet Volume 11.3H, Sodium Level 139, Potassium Level 3.4L, Chloride Level 109H, Carbon Dioxide Level 20L, Anion Gap 10, Blood Urea Nitrogen 10, Creatinine 0.67, Estimat Glomerular Filtration Rate > 60, BUN/Creatinine Ratio 15, Glucose Level 111H, Calcium Level 8.8, Corrected Calcium 8.9, Total Bilirubin 0.6, Aspartate Amino Transf (AST/SGOT) 22, Alanine Aminotransferase ( ALT/SGPT) 17, Alkaline Phosphatase 76, Total Protein 6.2L, Albumin 3.9 A/P: Assessment/Dx: High degree AV block. Hypertension, Hyperlipidemia Plan: 1. High degree A-V block: Heart rate 34 bpm. c/o fatigue. Spoke about dual chamber permanent pacemaker. Normal blood pressure. Echocardiogram. Dual- chamber permanent pacemaker done yesterday. Patient had prolonged episode of complete heart block during the procedure. Antibiotics for 3 day. Device interrogation today was within normal limits. Okay to discharge today, wound check in one week with RN, cardiology follow-up in one month. Discharge instructions discussed atlength with the patient Echocardiogram done on 08/23/2017 shows mild LVH with normal systolic function. EF 55-65 percent. Mild diastolic dysfunction. PA pressure is 46 mmHg. Mild mitral regurgitation, [id number] aortic regurgitation, [id number] tricuspid regurgitation. 2. Post nasal surgery, no cardiac issues. 3. Cardiac murmur: Likely mild aortic sclerosis. Echocardiogram shows mild to moderate AR, mild to moderate TR. Mild MR. No . 4. Hypertension: Continue outpatient medications. 5. Hyperlipidemia: Continue statin therapy. Thank you for your consultation. Please call me if you have any questions. Fern Finn MD, FACP, FACC, FSCAI, FHRS, CCDS Interventional Cardiology Cardiac Electrophysiology Vascular Medicine and Endovascular Interventions Clinical Quality Measures AMI/AHF: ASA po Prior to arrival: Yes Dionicio FINN MD Jul 18, 2018 11:32
== END 2018-07-18 11:10 | disposition home or self-care (01) | DRG 244 ==
LOC: EDUNIT# 16:17 → ER 16:18 → 4TH 17:25 → ICU 07-17 18:38
PROVIDERS: ADMIT Internal Medicine; ATTEND Internal Medicine
PROC: 02HK3JZ Insertion of Pacemaker Lead into Right Ventricle, Percutaneous Approach (ICD-10-PCS; principal; 2018-07-17)
PROC: 02H63JZ Insertion of Pacemaker Lead into Right Atrium, Percutaneous Approach (ICD-10-PCS; 2018-07-17)
PROC: 0JH606Z Insertion of Pacemaker, Dual Chamber into Chest Subcutaneous Tissue and Fascia, Open Approach (ICD-10-PCS; 2018-07-17)
DX: I44.2 Atrioventricular block, complete (principal); E78.2 Mixed hyperlipidemia; I10 Essential (primary) hypertension; K21.9 Gastro-esophageal reflux disease without esophagitis; I08.3 Combined rheumatic disorders of mitral, aortic and tricuspid valves
CPT/HCPCS: 33208; 36415; 71045; 75820; 80053; 80061; 83735; 83874; 84484; 85025; 85027; 85610; 85730; 87081; 93005; 93041; 93306

== ENCOUNTER → 2019-04-10 | Outpatient (CLI) | payer MEDICARE, OTHER ==
[~2019-04-10] MED LIST changes: +CALC-696 PO; +CEPH-507 PO; +CYCL10TA9 PO; +FLAX10004 PO; +MELO15TA39 PO; +MULT1TAB69 PO; -OMEP20CA12 PO; +OMEP20CA13 PO; +VITA400C58 PO
--- NOTE | 2019-04-10 16:20 | Diagnostic Imaging Report ---
INDICATION: Routine screening. Comparison is made with prior mammograms from 04/04/2018 and 03/23/2017. 2-D and 3-D bilateral screening mammography was performed. The current study was also evaluated with a Computer Aided Detection (CAD) system. 3-D tomosynthesis was also performed and reviewed. FINDINGS: Scattered fibroglandular densities are identified bilaterally. The parenchymal pattern is stable. No dominant mass or malignant-appearing microcalcifications are seen. Axillae are unremarkable. IMPRESSION: No mammographic features suspicious for malignancy are identified. ACR BI-RADS Category 1: Negative. Result letter will be mailed to the patient. Note: At least 10% of breast cancer is not imaged by mammography. Dictated by: Dictated on workstation # [id number]
== END ==
LOC: RAD 10:05
PROVIDERS: ATTEND Obstetrics & Gynecology
DX: Z12.31 Encounter for screening mammogram for malignant neoplasm of breast (principal)
CPT/HCPCS: 77067

== ENCOUNTER 2020-01-07 05:37 | Outpatient (CLI) | payer MEDICARE, OTHER ==
[~2020-01-07] VITALS: Ht 160 cm; Wt 56.8 kg
[~2020-01-07 05:37] MED LIST changes: -HYDR-3812 PO; +MULT-567 PO; -MULT1TAB69 PO; -OMEP20CA13 PO; +OMEP20CA18 PO; +SIMV20TA26 PO; -SIMV20TA3 PO; +SIMV40TA25 PO; -SIMV40TA4 PO; +VITA-272 PO; -VITA400C58 PO
[2020-01-07] MEDS ORDERED: ASPI-999 PO (08:38)
[2020-01-07 08:40] VITALS: BP 145/82
[2020-01-07 09:16] LABS: BASOPHILS % (AUTO) 1 % (0-10); EOSINOPHILS # (AUTO) 0.1 10^3/uL (0.0-0.3); EOSINOPHILS % (AUTO) 2 % (0-10); HEMATOCRIT 37 % (35-52); HEMOGLOBIN 12.1 g/dL (11.5-16.0); LYMPHOCYTES # (AUTO) 1.8 10^3/uL (1.0-4.0); LYMPHOCYTES % (AUTO) 31 % (12-44); MEAN CORPUSCULAR HEMOGLOBIN 30 pg (25-34); MEAN CORPUSCULAR HGB CONC 33 g/dL (32-36); MEAN CORPUSCULAR VOLUME 90 fL (80-99); MEAN PLATELET VOLUME 10.7 fL (9.0-12.2); MONOCYTES % (AUTO) 17 % (0-12); NEUTROPHILS # (AUTO) 2.8 10^3/uL (1.8-7.8); NEUTROPHILS % (AUTO) 49 % (42-75); PLATELET COUNT 224 10^3/uL (130-400); WHITE BLOOD COUNT 5.7 10^3/uL (4.3-11.0)
[2020-01-07 09:34] LABS: CHLORIDE 104 MMOL/L (98-107); POTASSIUM 4.4 MMOL/L (3.6-5.0); SODIUM 139 MMOL/L (135-145)
[2020-01-07 09:35] LABS: CALCIUM 9.4 MG/DL (8.5-10.1); GLUCOSE 110 MG/DL (70-105)
[2020-01-07 09:37] LABS: CARBON DIOXIDE 23 MMOL/L (21-32)
[2020-01-07 09:39] LABS: CREATININE SERUM 0.83 MG/DL (0.60-1.30); GFR ESTIMATED > 60
[2020-01-07 09:40] LABS: BUN/CREATININE RATIO 27
== END 2020-01-07 10:18 | disposition home or self-care (01) ==
LOC: PREOP 05:37
PROVIDERS: ATTEND Otolaryngology Otolaryngology/Facial Plastic Surgery
DX: Z01.812 Encounter for preprocedural laboratory examination (principal); Z20.828 Contact with and (suspected) exposure to other viral communicable diseases; J34.89 Other specified disorders of nose and nasal sinuses
CPT/HCPCS: 80048; 85025; 87081; 93005; U0002; 36415; 87635

== ENCOUNTER 2020-01-09 06:15 | Day surgery (SDC) | payer MEDICARE, OTHER ==
[~2020-01-09] VITALS: Ht 160 cm; Wt 56.8 kg
[2020-01-09] VITALS (9 sets, daily range): BP systolic 116–168; BP diastolic 60–85
[~2020-01-09 06:15] MED LIST changes: +ASPI-999 PO
--- NOTE | 2020-01-09 06:53 | Progress Note-Pre Operative ---
Pre-Operative Progress Note H&P Reviewed The H&P was reviewed, patient examined and no changes noted. Date Seen by Provider: Jan 09, 2020 Time Seen by Provider: 06: Date H&P Reviewed: Jan 09, 2020 Time H&P Reviewed: 06:30 Pre-Operative Diagnosis: Nasal Tip lesion FRED GLASS MD Jan 09, 2020 06:53
[2020-01-09] MEDS: LACTATED RINGERS 1,000 ML IV PRN ×2 (06:58→09:19)
[2020-01-09] MEDS ORDERED: LIDOCAINE PF 2% 5 ML (XYLOCAINE) VIAL ONE (07:17)
[2020-01-09] MEDS ORDERED: ONDANSETRON 4 MG/2 ML (SDV) Z0FRAN ONE (07:17)
[2020-01-09] MEDS ORDERED: proPOfol 200 MG/20 ML (DIPRIVAN) VIAL IV ONE (07:17)
[2020-01-09] MEDS ORDERED: fentaNYL INJECTION 100 MCG/2 ML AMP ONE (07:17)
[2020-01-09] MEDS ORDERED: SEVOFLURANE (ULTANE) 15 ML INHAL SOLN ONE (07:18)
[2020-01-09] MEDS ORDERED: MIDAZOLAM 2 MG/2 ML (VERSED) VIAL ONE (07:18)
[2020-01-09] MEDS ORDERED: LIDOCAINE 1% INJ 20 ML 20 ML VIAL ONE (07:20)
[2020-01-09] MEDS ORDERED: MUPIROCIN 2% OINT 22 GM (BACTROBAN) TUBE ONE (07:20)
[2020-01-09] MEDS ORDERED: LIDOCAINE/EPI 1%-1:100,000 (XYLOCAINE) 20ML ONE (07:20)
[2020-01-09] MEDS ORDERED: BSS 15 ML ONE (08:08)
--- NOTE | 2020-01-09 09:18 | Progress Note-Post Operative ---
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 Specimen(s) collected/removed nasal tip lesion to pathology for frozen section FRED GLASS MD Jan 09, 2020 09:18
[2020-01-09] MEDS ORDERED: ACETAMINOPHEN 325 MG TABLET PO PRN (09:30)
[2020-01-09] MEDS ORDERED: HYDROcodone/APAP 5 MG/325 MG (LORTAB) TAB PO PRN (09:30)
[2020-01-09] MEDS ORDERED: MEPERIDINE (DEMEROL) INJ 50 MG/ML IVP ONE (10:00)
[2020-01-09] MEDS ORDERED: ONDANSETRON 4 MG/2 ML (SDV) Z0FRAN IVP PRN (10:00)
[2020-01-09] MEDS ORDERED: fentaNYL INJECTION 100 MCG/2 ML AMP IVP ONE (10:00)
[2020-01-09] MEDS ORDERED: ACHD5005 PO (10:47)
[2020-01-09] MEDS ORDERED: CEPH-507 PO (10:47)
--- NOTE | 2020-01-15 07:28 | Anesthesia-General Post-Op ---
General Significant Intra-Op Events Notes post op addendum for 01-09-20 at 1100 Patient Condition Mental Status/LOC: Same as Preop Cardiovascular: Satisfactory Nausea/Vomiting: Absent Respiratory: Satisfactory Pain: Controlled Complications: Absent Post Op Complications Complications None Follow Up Care/Instructions Patient Instructions None needed. Anesthesia/Patient Condition Patient Condition Patient is doing well, no complaints, stable vital signs, no apparent adverse anesthesia problems. No complications reported per nursing. DEAN MARIA RISK COMPLIANCE ANALYST Jan 15, 2020 07:28
== END 2020-01-09 11:40 | disposition home or self-care (01) ==
LOC: SDC 06:15
PROVIDERS: ATTEND Otolaryngology Otolaryngology/Facial Plastic Surgery
DX: C44.311 Basal cell carcinoma of skin of nose (principal); I10 Essential (primary) hypertension; K21.9 Gastro-esophageal reflux disease without esophagitis; G89.29 Other chronic pain; M54.5 Low back pain; Z79.899 Other long term (current) drug therapy; Z88.2 Allergy status to sulfonamides; Z88.5 Allergy status to narcotic agent
CPT/HCPCS: 87081; 88305; 88331

== ENCOUNTER → 2020-04-15 | Outpatient (CLI) | payer MEDICARE, OTHER ==
[~2020-04-15] MED LIST changes: +AMLO-250 PO; -AMLO5TAB9 PO
--- NOTE | 2020-04-15 14:44 | Diagnostic Imaging Report ---
Digital mammogram, bilateral screening. COMPARISON: This study was compared to the prior exams of 04/10/2019, 04/04/2018 and 03/23/2017. At this time, there are no current complaints. The current study was also evaluated with a Computer Aided Detection (CAD) system. FINDINGS: The fibroglandular tissue in both breasts is heterogeneously dense. This does limit the sensitivity of this exam. Overall, there does not appear to have been any significant change when compared to the prior study. No primary or secondary sign of malignancy is noted. IMPRESSION: There is no radiographic evidence for malignancy. ACR Category 1. ACR BI-RADS Category 1: Negative. Result letter will be mailed to the patient. Note: At least 10% of breast cancer is not imaged by mammography. Dictated by: Dictated on workstation # [id number]
== END ==
LOC: RAD 09:37
PROVIDERS: ATTEND Obstetrics & Gynecology
DX: Z12.31 Encounter for screening mammogram for malignant neoplasm of breast (principal)
CPT/HCPCS: 77063; 77067

== ENCOUNTER → 2021-04-18 | Outpatient (CLI) | payer MEDICARE, OTHER ==
[~2021-04-18] MED LIST changes: +CYCL10TA25 PO; -CYCL10TA9 PO
--- NOTE | 2021-04-18 10:53 | Diagnostic Imaging Report ---
INDICATION: Routine screening. Comparison is made with prior mammogram 04/15/2020 and 04/10/2019. 2-D and 3-D bilateral screening mammography was performed with CAD. Scattered fibroglandular densities are identified bilaterally. There is a slightly nodular density in the mid right breast projected just lateral to the nipple line on the CC view. This appears to be at the nipple line on the MLO view. Additional views are recommended. The left breast is unremarkable. No malignant-appearing microcalcifications are seen. Axillae are unremarkable. IMPRESSION: Right breast density. Additional views are recommended for further evaluation. BI-RADS 0 ACR BI-RADS Category 0: Incomplete. (Needs additional imaging evaluation). Result letter will be mailed to the patient. Note: At least 10% of breast cancer is not imaged by mammography. Dictated by: Dictated on workstation # [id number]
== END ==
LOC: RAD 09:15
PROVIDERS: ATTEND Family Medicine
DX: Z12.31 Encounter for screening mammogram for malignant neoplasm of breast (principal)
CPT/HCPCS: 77063; 77067

== ENCOUNTER → 2021-04-22 | Outpatient (CLI) | payer MEDICARE, OTHER ==
--- NOTE | 2021-04-22 12:38 | Diagnostic Imaging Report ---
Indication: Right breast density. Patient presents for additional views. Correlation is made with prior screening mammogram from 04/18/2021. Unilateral right 2-D and 3-D diagnostic mammography was performed. This includes spot compression CC and ML views as well as conventional 90 degree lateral views. There is a persistent nodular density in the lower and slightly outer right breast, 4 cm from the nipple. Further evaluation of this area with ultrasound is recommended. No other abnormalities are seen. IMPRESSION: BI-RADS 0 Persistent nodular density in the slightly lower outer right breast 4 cm from the nipple. Further evaluation with ultrasound is recommended and will be performed today. ACR BI-RADS Category 0: Incomplete. (Needs additional imaging evaluation). Result letter will be mailed to the patient. Note: At least 10% of breast cancer is not imaged by mammography. Dictated by: Dictated on workstation # [id number]
--- NOTE | 2021-04-22 13:45 | Diagnostic Imaging Report ---
INDICATION: Right breast density. Correlation is made with diagnostic mammogram earlier the same day and screening mammogram from 04/18/2021. Sonographic interrogation of the lower outer right breast was performed. There is a circumscribed slightly lobulated hypoechoic nodule at the 8:00 location of the right breast, 4 cm from the nipple measuring 10 mm x 5 mm x 10 mm. This correlates in location and size to the mammographic density. This does have an echogenic center and may represent intraparenchymal lymph node. No posterior acoustic shadowing is identified. No abnormal vascularity is seen. IMPRESSION: BI-RADS Category 2 Findings most suggestive of an intraparenchymal lymph node 8 o'clock location right breast, 4 cm from the nipple corresponding to a mammographic density. Patient may return to routine annual screening mammography. ACR BI-RADS Category 2: Benign findings. Result letter will be mailed to the patient. Note: At least 10% of breast cancer is not imaged by mammography. Dictated by: Dictated on workstation # [id number]
== END ==
LOC: RAD 12:45
PROVIDERS: ATTEND Family Medicine
DX: R92.2 Inconclusive mammogram (principal)
CPT/HCPCS: 76642; 77065; G0279

== ENCOUNTER → 2022-03-20 | Outpatient (CLI) | payer MEDICARE, OTHER ==
[~2022-03-20] MED LIST changes: +VITA-212 PO; -VITA-272 PO
== END ==
LOC: CARD 08:31
PROVIDERS: ATTEND Nurse Practitioner Family
DX: I08.0 Rheumatic disorders of both mitral and aortic valves (principal)
CPT/HCPCS: 93306

== ENCOUNTER → 2022-04-20 | Outpatient (CLI) | payer MEDICARE, OTHER ==
--- NOTE | 2022-04-20 11:24 | Diagnostic Imaging Report ---
INDICATION: Routine screening. Comparison is made with prior mammogram 04/18/2021 and 04/15/2020. 2-D and 3-D bilateral screening mammography was performed with CAD. CAD is utilized. The current study was also evaluated with a Computer Aided Detection (CAD) system. Scattered fibroglandular densities are identified bilaterally. The breast parenchymal pattern is stable. No new mass or malignant-appearing microcalcifications are seen. Nodular density previously noted in the right breast slightly outer appears stable. Axillae are unremarkable. IMPRESSION: BI-RADS Category 2 No mammographic features suspicious for malignancy are identified. ACR BI-RADS Category 2: Benign findings. Result letter will be mailed to the patient. Note: At least 10% of breast cancer is not imaged by mammography. Dictated by: Dictated on workstation # [id number]
== END ==
LOC: RAD 07:41
PROVIDERS: ATTEND Obstetrics & Gynecology
DX: Z12.31 Encounter for screening mammogram for malignant neoplasm of breast (principal)
CPT/HCPCS: 77063; 77067